=== PATIENT | male | born 1970 | race Caucasian/White ===

== ENCOUNTER 2019-06-24 16:40 | Outpatient (CLI) | payer OTHER, SELFPAY ==
[2019-06-24 16:59] LABS: Basophils Absolute Auto 0.1 K/mm3 (0.0-0.1); Basophils Percent Auto 1.4 % (0.2-1.2); Eosinophils Absolute Auto 0.2 K/mm3 (0-0.3); Eosinophils Percent Auto 2.7 % (0-4.4); Hematocrit 44.2 % (42.0-52.0); Hemoglobin 14.8 g/dL (14.0-18.0); Immature Platelet Fraction Pct 4.5 % (0.9-11.2); Lymphocytes Percent Auto 28.3 % (18.3-44.2); Mean Corpuscular HGB Conc 33.5 g/dl (32-36); Mean Corpuscular Volume 98.4 fl (80-100); Mean Platelet Volume 9.9 fl (7.4-10.4); Monocytes Absolute Auto 0.7 K/mm3 (0.1-0.6); Monocytes Percent Auto 10.8 % (2.6-8.5); Neutrophils Absolute Auto 3.6 K/mm3 (1.3-6.7); Neutrophils Percent Auto 56.8 % (45.5-73.1); Platelet Count Result 119 k/mm3 (150-375); Red Blood Count 4.49 M/mm3 (4.6-6.20); Red Cell Distribution Width 13.8 % (11.5-14.5); White Blood Count 6.4 K/mm3 (4.5-10.0)
[2019-06-24 17:09] LABS: Alanine Aminotransferase 55 U/L (4-50); Albumin Level 4.3 g/dL (3.5-5.1); Alkaline Phosphatase 260 U/L (38-126); Aspartate Amino Transferase 124 U/L (17-59); Bilirubin,Total 1.3 mg/dL (0.2-1.3); Blood Urea Nitrogen 10 mg/dL (9-20); Carbon Dioxide 23 mmol/L (22-30); Chloride 102 mmol/L (98-107); Estimated Glomerular Filt Rate > 60; Glucose 95 mg/dL (75-110); Potassium 4.3 mmol/L (3.4-5.0); Sodium 136 mmol/L (137-145)
[2019-06-24 18:29] LABS: Digoxin 0.6 ng/mL (0.8-2.0)
== END 2019-06-24 16:41 | disposition home or self-care (01) ==
PROVIDERS: Visit Provider Internal Medicine Cardiovascular Disease
DX: I48.19 Other persistent atrial fibrillation (principal); Z79.899 Other long term (current) drug therapy; Z79.01 Long term (current) use of anticoagulants
CPT/HCPCS: 36415; 80053; 80162; 85025; 85055

== ENCOUNTER 2020-01-10 10:43 | Outpatient (CLI) | payer OTHER, SELFPAY ==
--- NOTE | ~2020-01-10 | XR_ITS ---
XR lumbar spine 2-3V DATE: 01/10/2020 10:58 INDICATION: Low back pain, radiating down right leg, numbness TECHNIQUE: AP, lateral, coned lateral lumbosacral views COMPARISON: 03/01/2018 CT abdomen FINDINGS: There is chronic mild anterior wedging of L1 and L2, also noted on 02/19/2018 CT abdomen exa mination. The lumbar and lumbosacral interspaces are relatively preserved. There is moderate degenera tive spurring, particularly at L1-L3 4. The included lower thoracic and lumbar pedicles are intact. No recent fracture or bone destruction is evident. No spondylolisthesis. The sacroiliac joints appear normal. IMPRESSION: Degenerative spurring Chronic mild anterior wedging of L1 and L2 Reviewed, dictated and finalized at location B.
== END 2020-01-10 10:44 | disposition home or self-care (01) ==
LOC: CHSIMG 10:45
PROVIDERS: PCP Nurse Practitioner Family; Visit Provider Nurse Practitioner Family
DX: M54.5 Low back pain (principal)
CPT/HCPCS: 72100

== ENCOUNTER 2020-01-12 07:52 | Outpatient (RCR) | payer OTHER, SELFPAY ==
--- NOTE | 2020-01-12 17:48 | PTOPEVAL ---
Thank you for referring Anthony Jackson to [facility].? The patient is scheduled to be seen for therapy? ____x/week for ___ weeks. Please review, sign, date and return this plan of care MATTI. I agree with and certify that the following plan of care is medically necessary. Referring Physician Date Admitting Provider: Attending Provider: Sarah Norman NP Referring Provider: *CHITRA Outpatient Evaluation Start: 01/12/20 07:22 Freq: Status: Active Protocol: Document 01/12/20 07:20 [facility] (Rec: 01/12/20 08:10 [facility] [id number]) Therapy Assessment Status Assessment Status Assessment Status Evaluation Evaluation Information Problem Diagnosis lowe back pain, vertebral osteophytes Onset 01/10/20 Subjective Information patient reports he has been Query Text:As Reported By Patient/ having pain in the back and Family down both of his legs. he reports he has been feeling a bit better recently due to having some new medications. he reports his R leg seems to be the worse of the 2 legs. he reports he has been having issues for about 2 weeks. he reports no injury. he reports has had x-rays. he reports he has increased pain with lifting boxes, standing, and transfers sit to stand. Prior Level of Function Comments Additional Prior Level of Function patient works for [employer]. Comments he reports prior to a few weeks ago, patient had no issues with his back or his legs. Pain Assessment Timing of Pain Assessment Timing of Pain Assessment Assessment Pain Scale Pain Scale Used Numeric (1 - 10) Self Report Pain Assessment Lower Back Reported Pain Level 2 Pain Radiation Left Leg,Right Leg Pain Frequency Acute,Intermittent Lowest Pain Intensity 0 Greatest Pain Intensity 10 Pain Score Pain Score 2: Self Report Cervical and Lumbar ROM Lumbar ROM Lumbar Flexion Active Mid Isaac Query Text:Hands to: Lumbar Extension (0-40) 20 Query Text:Active in Degrees Lumbar Lateral Flexion Right (0-40) 30 Query Text:Active in Degrees Lumbar Lateral Flexion Left (0-40) 30 Query Text:Active in Degrees Lumbar Comments pain increased with arom
== END 2020-02-09 10:22 | disposition home or self-care (01) ==
LOC: CHSPT 07:52
PROVIDERS: PCP Family Medicine; Visit Provider Nurse Practitioner Family
DX: M25.78 Osteophyte, vertebrae (principal); M51.36 Other intervertebral disc degeneration, lumbar region
CPT/HCPCS: 97014; 97110; 97161; 97530; G0283

== ENCOUNTER 2020-03-22 23:03 | Emergency (ER) | payer OTHER, SELFPAY ==
[2020-03-22 23:14] VITALS: BP 110/87; BP 130/82; PULSE 83; PULSE 88; RESP 16; RESP 18; TEMP 36.4; O2SAT 94
--- NOTE | 2020-03-22 23:14 | ECG_ITS ---
Measurements Intervals [place] Rate: 89 P: [place]: 0 QRS: 71 QRSD: 93 T: -12 QT: 355 QTc: 434 Interpretive Statements ATRIAL FIBRILLATION BORDERLINE R WAVE PROGRESSION, ANTERIOR LEADS BORDERLINE ST-T WAVE ABNORMALITY- INF/LAT LEADS ABNORMAL ECG Electronically Signed On 03-23-2020 7:20:44 CLINIC OFFICE MANAGER by Eric Wagner D.O.
--- NOTE | 2020-03-22 23:16 | ED.GENADULT ---
HPI - General Adult General Chief complaint: Alcohol Stated complaint: fell Source: patient Mode of arrival: ambulatory Limitations: altered mental status History of Present Illness HPI narrative: Anthony is a 49M with a PMH of DJD, alcoholic cirrhosis of the liver, ischemic cardiomyopathy, CAD, HLD, HTN and Afib that presented to the ED EMS after an episode of near syncope. He had been drinking (states 10 beers), and collapsed while urinating at the bathroom. He states his legs went numb and be fell to the ground and couldn't get up. He did not lose consciousness, or hit his head or neck. He denies pain at this time. No CP, SOB, or palpitations. He has regained feeling in his legs. No loss of bowel or bladder control. Related Data Allergies Allergy/AdvReac Type Severity Reaction Status Date / Time adhesive tape Allergy Unknown RASH Verified 02/10/20 08:20 Review of Systems Constitutional: Constitutional: Denies chills, Denies fever(s) and Reports weakness Eyes: Eyes: Reports no additional eye complaints ENT: Reports system reviewed and no additional complaints, except as documented Cardiovascular: Cardiovascular: Reports as per HPI Respiratory: Respiratory: Reports no additional respiratory complaints Gastrointestinal: Gastrointestinal: Reports no additional gastrointestinal complaints Genitourinary: Genitourinary: Reports no additional male genitourinary complaints Musculoskeletal: Musculoskeletal: Reports no additional musculoskeletal complaints Integumentary/Breasts: Skin/Breast: Reports system reviewed and no additional complaints, except as docu Neurologic: Reports system reviewed and no additional complaints, except as documented Psychiatric: Psychiatric: Reports no additional psychiatric complaints Endocrine: Endocrine: Reports no additional endocrine complaints Hematologic/Lymphatic: Hematologic/Lymphatic: Reports no additional hematologic/lymphatic complaints Allergic/Immunologic: Allergic/Immunologic: Reports no additional allergic/immunologic complaints [facility] Past Medical History Medical History (Updated 03/23/20 @ 00:00 by Davis Obregon DO) Acute myocardial infarction (~2015) Cath with no Stents Alcohol abuse Alcohol dependence Alcoholic cirrhosis of liver Atrial fibrillation Biatrial enlargement CHF (congestive heart failure) Chronic hepatitis Connective tissue disease Essential hypertension History of ingrown nail 04/2017 - -managed by Dr Avila Hyperlipidemia Ischemic cardiomyopathy Nonspecific abnormality on liver isotope scan Steatosis, liver Surgical History Surgical History History of shoulder surgery (~2011) Left Family History Family History Mother Cerebrovascular accident Father Diabetes mellitus Scleroderma Pulmonary hypertension Social History Social History Smoking status: Former smoker Alcohol intake: current Substance use: never Additional occupation/education comments: [employer] Gender identity (if verbalized by the patient): Male Sexual Orientation (if Verbalized by the Patient): Straight or Heterosexual Spiritual care concerns: No Exam Const: General: alert Orientation/consciousness: patient oriented x3 Other: Lying in bed without distress HENMT: Head: normal to inspection Other: normocephalic, atraumatic, EOMI Eyes: Conjunctivae: conjunctivae normal Pupils: Equal, round and reactive pupils present Neck: Neck: normal visual inspection Chest: Chest palpation & inspection: normal inspection of the chest Resp: Effort & Inspection: normal respiratory effort Auscultation: clear to auscultation bilaterally Cardio: Rate: regular rate Rhythm: regular rhythm GI: Inspection: non-distended GI Palp: Yes Soft to palpation, No Tenderness to palpation present (GI) a
[2020-03-22 23:30] LABS: Basophils Absolute Auto 0.05 K/mm3 (0.00-0.10); Eosinophils Percent Auto 3.8 % (1.0-6.0); Hematocrit 39.1 % (40.0-54.0); Hemoglobin 12.7 g/dL (14.0-18.0); Immature Granulocyte Absolute 0.01 K/mm3 (0.00-0.00); Immature Granulocyte Percent A 0.2 % (0.0-0.0); Lymphocytes Absolute Auto 2.03 K/mm3 (1.10-4.50); Lymphocytes Percent Auto 38.7 % (18.0-42.0); Mean Corpuscular HGB Conc 32.5 g/dL (32.0-36.0); Mean Corpuscular Hemoglobin 32.3 pg (27.0-31.0); Mean Corpuscular Volume 99.5 fL (78.0-102.0); Mean Platelet Volume 10.4 fl (8.7-11.0); Monocytes Absolute Auto 0.46 K/mm3 (0.10-0.90); Monocytes Percent Auto 8.8 % (2.0-11.0); Neutrophils Absolute Auto 2.5 K/mm3 (1.7-7.2); Neutrophils Percent Auto 47.5 % (50.0-70.0); Platelet Count Result 108 K/mm3 (150-420); Red Blood Count 3.93 M/mm3 (4.70-6.10); Red Cell Distribution Width 13.4 % (11.6-14.4); White Blood Count 5.3 K/mm3 (4.8-10.8)
[2020-03-22 23:43] LABS: INR 1.3; Prothrombin Time 13.9 Seconds (9.50-12.10)
[2020-03-22 23:48] LABS: Alanine Aminotransferase 30 U/L (16-63); Albumin Level 2.8 g/dL (3.4-5.0); Alkaline Phosphatase 236 U/L (46-116); Ammonia 26 umol/L (11-32); Anion Gap 14 mmol/L (8-16); Aspartate Amino Transferase 58 U/L (15-37); Bilirubin,Total 1.1 mg/dL (0.00-1.00); Blood Urea Nitrogen 10 mg/dL (7-18); Calcium 8.1 mg/dL (8.5-10.1); Carbon Dioxide 20 mmol/L (21-32); Chloride 99 mmol/L (98-108); Estimated CRCL calculation 94 ml/min; Estimated Glomerular Filt Rate > 60; Glucose 135 mg/dL (70-99); Osmolality Calculated 277 mOsm/kg (285-295); Potassium 3.7 mmol/L (3.5-5.1); Sodium 133 mmol/L (136-145); Total Protein 8.2 g/dL (6.4-8.2)
[2020-03-22 23:50] LABS: Ethanol > 300 mg/dL (0-6)
[2020-03-22 23:59] VITALS: BP 111/60; PULSE 82; RESP 18; O2SAT 96
[2020-03-23 00:10] VITALS: BP 109/80; PULSE 90; RESP 18; TEMP 36.3; O2SAT 95
== END 2020-03-23 00:11 | disposition home or self-care (01) ==
PROVIDERS: Emergency Provider Family Medicine; PCP Family Medicine
DX: F10.129 Alcohol abuse with intoxication, unspecified (principal)
CPT/HCPCS: 36415; 80053; 80307; 82140; 84484; 85025; 85610; 93005; 99282; 99284

== ENCOUNTER 2020-07-06 09:01 | Outpatient (CLI) | payer OTHER, SELFPAY ==
[2020-07-06 09:17] LABS: Basophils Absolute Auto 0.03 K/mm3 (0.00-0.10); Basophils Percent Auto 0.6 % (0.0-1.0); Eosinophils Absolute Auto 0.07 K/mm3 (0.02-0.50); Eosinophils Percent Auto 1.5 % (1.0-6.0); Hematocrit 41.2 % (40.0-54.0); Hemoglobin 13.4 g/dL (14.0-18.0); Immature Granulocyte Absolute 0.01 K/mm3 (0.00-0.00); Immature Granulocyte Percent A 0.2 % (0.0-0.0); Immature Platelet Fraction Pct 3.8 % (1.0-7.0); Lymphocytes Percent Auto 20.8 % (18.0-42.0); Mean Corpuscular HGB Conc 32.5 g/dL (32.0-36.0); Mean Corpuscular Hemoglobin 31.2 pg (27.0-31.0); Monocytes Absolute Auto 0.36 K/mm3 (0.10-0.90); Monocytes Percent Auto 7.5 % (2.0-11.0); Neutrophils Absolute Auto 3.3 K/mm3 (1.7-7.2); Neutrophils Percent Auto 69.4 % (50.0-70.0); Platelet Count Result 107 K/mm3 (150-420); Red Blood Count 4.29 M/mm3 (4.70-6.10); Red Cell Distribution Width 15.8 % (11.6-14.4); White Blood Count 4.8 K/mm3 (4.8-10.8)
[2020-07-06 10:02] LABS: Alanine Aminotransferase 36 U/L (16-63); Albumin Level 3.4 g/dL (3.4-5.0); Alkaline Phosphatase 244 U/L (46-116); Anion Gap 13 mmol/L (8-16); Aspartate Amino Transferase 53 U/L (15-37); Bilirubin,Total 2.2 mg/dL (0.00-1.00); Blood Urea Nitrogen 13 mg/dL (7-18); Calcium 8.7 mg/dL (8.5-10.1); Carbon Dioxide 24 mmol/L (21-32); Chloride 103 mmol/L (98-108); Digoxin 0.5 ng/mL (0.9-2.0); Estimated Glomerular Filt Rate > 60; Glucose 115 mg/dL (70-99); Osmolality Calculated 291 mOsm/kg (285-295); Potassium 3.9 mmol/L (3.5-5.1); Sodium 140 mmol/L (136-145); Total Protein 8.4 g/dL (6.4-8.2)
== END 2020-07-06 09:02 | disposition home or self-care (01) ==
LOC: CHSLAB 09:03
PROVIDERS: PCP Family Medicine; Visit Provider Internal Medicine Cardiovascular Disease
DX: I25.5 Ischemic cardiomyopathy (principal); I48.91 Unspecified atrial fibrillation; Z79.01 Long term (current) use of anticoagulants; Z79.899 Other long term (current) drug therapy
CPT/HCPCS: 36415; 80053; 80162; 85025; 85027; 85055

== ENCOUNTER 2020-09-26 10:55 | Outpatient (NON) | payer OTHER, SELFPAY ==
[2020-09-26 11:16] LABS: Hematocrit 38.6 % (40.0-54.0); Hemoglobin 12.4 g/dL (14.0-18.0); Mean Corpuscular HGB Conc 32.1 g/dL (32.0-36.0); Mean Corpuscular Hemoglobin 31.2 pg (27.0-31.0); Mean Corpuscular Volume 97.2 fL (78.0-102.0); Mean Platelet Volume 11.9 fl (8.7-11.0); Platelet Count Result 163 K/mm3 (150-420); Red Blood Count 3.97 M/mm3 (4.70-6.10); Red Cell Distribution Width 14.6 % (11.6-14.4); White Blood Count 5.9 K/mm3 (4.8-10.8)
[2020-09-26 11:19] LABS: Anion Gap 8 mmol/L (8-16); Blood Urea Nitrogen 18 mg/dL (7-18); CRP 3.6 mg/dL (0.0-0.9); Calcium 9.3 mg/dL (8.5-10.1); Carbon Dioxide 26 mmol/L (21-32); Chloride 103 mmol/L (98-108); Estimated Glomerular Filt Rate > 60; Glucose 96 mg/dL (70-99); Osmolality Calculated 285 mOsm/kg (285-295); Potassium 4.2 mmol/L (3.5-5.1); Sodium 137 mmol/L (136-145)
== END 2020-09-26 10:56 | disposition home or self-care (01) ==
LOC: CHSLAB 10:57
PROVIDERS: Visit Provider Internal Medicine Infectious Disease
DX: M86.9 Osteomyelitis, unspecified (principal)
CPT/HCPCS: 36415; 80048; 85027; 86140

== ENCOUNTER 2020-10-06 12:40 | Outpatient (NON) | payer OTHER, SELFPAY ==
[2020-10-06 12:59] LABS: Basophils Absolute Auto 0.04 K/mm3 (0.00-0.10); Basophils Percent Auto 0.7 % (0.0-1.0); Eosinophils Absolute Auto 0.11 K/mm3 (0.02-0.50); Eosinophils Percent Auto 2.1 % (1.0-6.0); Hematocrit 37.9 % (40.0-54.0); Hemoglobin 12.7 g/dL (14.0-18.0); Immature Granulocyte Absolute 0.01 K/mm3 (0.00-0.00); Immature Granulocyte Percent A 0.2 % (0.0-0.0); Lymphocytes Absolute Auto 1.39 K/mm3 (1.10-4.50); Mean Corpuscular HGB Conc 33.5 g/dL (32.0-36.0); Mean Corpuscular Hemoglobin 31.4 pg (27.0-31.0); Mean Corpuscular Volume 93.8 fL (78.0-102.0); Mean Platelet Volume 11.8 fl (8.7-11.0); Monocytes Percent Auto 7.5 % (2.0-11.0); Neutrophils Absolute Auto 3.4 K/mm3 (1.7-7.2); Neutrophils Percent Auto 63.5 % (50.0-70.0); Platelet Count Result 106 K/mm3 (150-420); Red Blood Count 4.04 M/mm3 (4.70-6.10); Red Cell Distribution Width 14.6 % (11.6-14.4); White Blood Count 5.4 K/mm3 (4.8-10.8)
[2020-10-06 13:18] LABS: Alanine Aminotransferase 34 U/L (16-63); Albumin Level 3.1 g/dL (3.4-5.0); Alkaline Phosphatase 291 U/L (46-116); Anion Gap 15 mmol/L (8-16); Aspartate Amino Transferase 72 U/L (15-37); Bilirubin,Total 1.3 mg/dL (0.00-1.00); Blood Urea Nitrogen 13 mg/dL (7-18); CRP 0.5 mg/dL (0.0-0.9); Calcium 8.9 mg/dL (8.5-10.1); Carbon Dioxide 22 mmol/L (21-32); Chloride 100 mmol/L (98-108); Estimated Glomerular Filt Rate > 60; Glucose 94 mg/dL (70-99); Osmolality Calculated 284 mOsm/kg (285-295); Potassium 3.8 mmol/L (3.5-5.1); Sodium 137 mmol/L (136-145); Total Protein 8.5 g/dL (6.4-8.2)
== END 2020-10-06 12:41 | disposition home or self-care (01) ==
LOC: CHSLAB 12:42
PROVIDERS: Visit Provider Internal Medicine Infectious Disease
DX: M86.9 Osteomyelitis, unspecified (principal)
CPT/HCPCS: 36415; 80053; 85025; 86140

== ENCOUNTER 2020-10-10 13:14 | Outpatient (NON) | payer OTHER, SELFPAY ==
[2020-10-10 13:24] LABS: Basophils Absolute Auto 0.04 K/mm3 (0.00-0.10); Basophils Percent Auto 0.7 % (0.0-1.0); Eosinophils Absolute Auto 0.27 K/mm3 (0.02-0.50); Eosinophils Percent Auto 4.9 % (1.0-6.0); Hematocrit 42.7 % (40.0-54.0); Immature Granulocyte Absolute 0.02 K/mm3 (0.00-0.00); Immature Granulocyte Percent A 0.4 % (0.0-0.0); Lymphocytes Absolute Auto 0.98 K/mm3 (1.10-4.50); Lymphocytes Percent Auto 17.7 % (18.0-42.0); Mean Corpuscular HGB Conc 32.8 g/dL (32.0-36.0); Mean Corpuscular Hemoglobin 31.3 pg (27.0-31.0); Mean Corpuscular Volume 95.3 fL (78.0-102.0); Mean Platelet Volume 11.8 fl (8.7-11.0); Monocytes Absolute Auto 0.44 K/mm3 (0.10-0.90); Monocytes Percent Auto 7.9 % (2.0-11.0); Neutrophils Absolute Auto 3.8 K/mm3 (1.7-7.2); Neutrophils Percent Auto 68.4 % (50.0-70.0); Platelet Count Result 99 K/mm3 (150-420); Red Blood Count 4.48 M/mm3 (4.70-6.10); Red Cell Distribution Width 14.9 % (11.6-14.4); White Blood Count 5.6 K/mm3 (4.8-10.8)
[2020-10-10 13:34] LABS: Anion Gap 13 mmol/L (8-16); Blood Urea Nitrogen 9 mg/dL (7-18); CRP 0.7 mg/dL (0.0-0.9); Calcium 9.6 mg/dL (8.5-10.1); Carbon Dioxide 24 mmol/L (21-32); Chloride 102 mmol/L (98-108); Estimated Glomerular Filt Rate > 60; Glucose 101 mg/dL (70-99); Osmolality Calculated 286 mOsm/kg (285-295); Potassium 3.8 mmol/L (3.5-5.1); Sodium 139 mmol/L (136-145)
== END 2020-10-10 13:15 | disposition home or self-care (01) ==
LOC: CHSLAB 13:16
PROVIDERS: Visit Provider Internal Medicine Infectious Disease
DX: M86.9 Osteomyelitis, unspecified (principal)
CPT/HCPCS: 36415; 80048; 85025; 86140

== ENCOUNTER 2020-10-20 09:49 | Outpatient (NON) | payer OTHER, SELFPAY ==
[2020-10-20 10:41] LABS: Basophils Absolute Auto 0.03 K/mm3 (0.00-0.10); Basophils Percent Auto 0.6 % (0.0-1.0); Eosinophils Absolute Auto 0.28 K/mm3 (0.02-0.50); Eosinophils Percent Auto 5.4 % (1.0-6.0); Immature Granulocyte Absolute 0.02 K/mm3 (0.00-0.00); Immature Granulocyte Percent A 0.4 % (0.0-0.0); Immature Platelet Fraction Pct 4.2 % (1.0-7.0); Lymphocytes Absolute Auto 0.98 K/mm3 (1.10-4.50); Lymphocytes Percent Auto 19.1 % (18.0-42.0); Mean Corpuscular HGB Conc 33.3 g/dL (32.0-36.0); Mean Corpuscular Hemoglobin 31.1 pg (27.0-31.0); Mean Corpuscular Volume 93.3 fL (78.0-102.0); Mean Platelet Volume 11.9 fl (8.7-11.0); Monocytes Absolute Auto 0.58 K/mm3 (0.10-0.90); Monocytes Percent Auto 11.3 % (2.0-11.0); Neutrophils Absolute Auto 3.3 K/mm3 (1.7-7.2); Neutrophils Percent Auto 63.2 % (50.0-70.0); Platelet Count Result 78 K/mm3 (150-420); Red Blood Count 4.18 M/mm3 (4.70-6.10); Red Cell Distribution Width 15.5 % (11.6-14.4); White Blood Count 5.1 K/mm3 (4.8-10.8)
[2020-10-20 10:42] LABS: Anion Gap 15 mmol/L (8-16); Blood Urea Nitrogen 10 mg/dL (7-18); CRP 0.5 mg/dL (0.0-0.9); Calcium 8.9 mg/dL (8.5-10.1); Carbon Dioxide 21 mmol/L (21-32); Chloride 101 mmol/L (98-108); Estimated Glomerular Filt Rate > 60; Glucose 105 mg/dL (70-99); Osmolality Calculated 283 mOsm/kg (285-295); Potassium 4.2 mmol/L (3.5-5.1); Sodium 137 mmol/L (136-145)
== END 2020-10-20 09:50 | disposition home or self-care (01) ==
LOC: CHSLAB 09:51
PROVIDERS: Visit Provider Internal Medicine Infectious Disease
DX: M86.9 Osteomyelitis, unspecified (principal)
CPT/HCPCS: 36415; 80048; 85025; 85055; 86140

== ENCOUNTER 2021-03-13 14:19 | Outpatient (CLI) | payer OTHER, SELFPAY ==
[2021-03-13 14:40] LABS: Basophils Absolute Auto 0.04 K/mm3 (0.00-0.10); Basophils Percent Auto 0.7 % (0.0-1.0); Eosinophils Absolute Auto 0.13 K/mm3 (0.02-0.50); Eosinophils Percent Auto 2.3 % (1.0-6.0); Hematocrit 37.8 % (40.0-54.0); Hemoglobin 12.5 g/dL (14.0-18.0); Immature Granulocyte Absolute 0.01 K/mm3 (0.00-0.00); Immature Granulocyte Percent A 0.2 % (0.0-0.0); Immature Platelet Fraction Pct 4.3 % (1.0-7.0); Lymphocytes Absolute Auto 1.23 K/mm3 (1.10-4.50); Lymphocytes Percent Auto 21.7 % (18.0-42.0); Mean Corpuscular HGB Conc 33.1 g/dL (32.0-36.0); Mean Corpuscular Hemoglobin 33.1 pg (27.0-31.0); Mean Platelet Volume 11.2 fl (8.7-11.0); Monocytes Absolute Auto 0.62 K/mm3 (0.10-0.90); Monocytes Percent Auto 10.9 % (2.0-11.0); Neutrophils Absolute Auto 3.6 K/mm3 (1.7-7.2); Neutrophils Percent Auto 64.2 % (50.0-70.0); Platelet Count Result 100 K/mm3 (150-420); Red Blood Count 3.78 M/mm3 (4.70-6.10); Red Cell Distribution Width 14.6 % (11.6-14.4); White Blood Count 5.7 K/mm3 (4.8-10.8)
[2021-03-13 15:04] LABS: INR 1.2; Prothrombin Time 12.9 Seconds (9.50-12.10)
[2021-03-13 17:19] LABS: Alanine Aminotransferase 39 U/L (16-63); Albumin Level 3.2 g/dL (3.4-5.0); Alkaline Phosphatase 258 U/L (46-116); Anion Gap 14 mmol/L (8-16); Aspartate Amino Transferase 54 U/L (15-37); Bilirubin,Total 2.1 mg/dL (0.00-1.00); Blood Urea Nitrogen 14 mg/dL (7-18); Calcium 8.6 mg/dL (8.5-10.1); Carbon Dioxide 21 mmol/L (21-32); Chloride 102 mmol/L (98-108); Estimated Glomerular Filt Rate > 60; Glucose 82 mg/dL (70-99); Osmolality Calculated 283 mOsm/kg (285-295); Potassium 4.1 mmol/L (3.5-5.1); Sodium 137 mmol/L (136-145); Total Protein 7.9 g/dL (6.4-8.2)
== END 2021-03-13 14:20 | disposition home or self-care (01) ==
LOC: CHSLAB 14:20
PROVIDERS: PCP Family Medicine; Visit Provider Surgery
DX: K42.9 Umbilical hernia without obstruction or gangrene (principal); K70.30 Alcoholic cirrhosis of liver without ascites
CPT/HCPCS: 36415; 80053; 85025; 85055; 85610

== ENCOUNTER 2021-03-30 01:00 | Day surgery (SDC) | payer OTHER, SELFPAY ==
[2021-03-23 14:53] VITALS: BMI 26.0
--- NOTE | 2021-03-23 15:09 | PC.NURSE ---
Report to the Outpatient Waiting Room, entrance under the green pavilion located off [facility], at time 1100 on date 03/30/21. OR Time: 1300. - You and your visitor will be asked a series of questions to screen for COVID 19 for your protection. - A mask is required within the hospital. - Only one visitor is allowed at this time. Patient visitors will be guided where to wait when not with patient. Preoperative COVID Testing Requirements: No COVID Test needed if: (proof is required; if not received patient will have Rapid Test prior to entry) - Patient has received COVID Vaccine at least 14 days prior to procedure date or - Patient has positive COVID test result within last 90 days of surgery date. COVID Test needed if above criteria is not met If not COVID vaccinated a COVID test must be conducted within 72 hours of surgery and patient is asked to isolate self from time of testing until procedure. You will go to the [facility] for your COVID testing. The [facility] is located at the corner of [address] [facility]. You will only be called if COVID results are positive and your surgeon may reschedule your elective surgery date. Patients may have clear liquids (water, carbonated beverages, clear teas, apple juice) until 3 hours prior to surgery with a maximum of 20 ounces. - No food from midnight until time of surgery - Infants may have breast milk until 4 hours before surgery, infant formula 6 hours prior to surgery. - Children will be allowed to drink immediately following surgery. If applicable, please bring a bottle or sippy cup to assist with drinking. Juice, water, soda, and popsicles are readily available. For infants on formula, please bring formula the day of surgery. Pacifiers are allowed. Take the following medications with a SIP of water the morning of surgery: METOPROLOL, DIGOXIN, GABAPENTIN Medications to discontinue per physician: VITAMINS/SUPPLEMENTS Date to take last dose: 03/26/21 STOP XARELTO ON 03/27/21 (PER PHYSICIAN ORDERS) Please no make-up, nail latvian, hairspray, perfume, deodorant, or body powder the day of surgery. No jewelry (including any body piercings) or valuables the day of surgery, leave them at home. Please take a shower or bath the night before, or the morning of, surgery with an antibacterial soap. Wear comfortable, loose fitting clothing. Children are encouraged to wear pajamas. HIBICLENS SHOWER - Jewelry must be removed prior to entering the operating room. Rings and piercings that are not removed may be cut off. - The hospital will not accept responsibility for valuables. - Please leave all valuables, including medications, at home the day of surgery. If you are going home after surgery, a licensed front end loader driver must drive you home. - NO public transportation without another adult. - We recommend that an adult stay with you for 24 hours following discharge. - We also recommend that you do not drive, make important decision, drink alcoholic beverages, or take any drugs that were not prescribed by your health care provider for at least 24 hours after your discharge time. For Pediatric surgeries, we recommend two adults accompany the child home (only one inside the building at this time). Follow any additional instructions given to you from your surgeon. Telephone instructions given to VALDEMAR SCHULTE and asked if any additional questions and then verbalized understanding. Patient advised to call surgeon office or pre surgery nurse liaison [phone] if any additional questions.
[2021-03-30] VITALS (8 sets, daily range): BP systolic 123–164; BP diastolic 79–95; PULSE 77–93; RESP 12–16; TEMP 36.4; O2SAT 97–100
--- NOTE | 2021-03-30 11:19 | ECG_ITS ---
Measurements Intervals [place] Rate: 94 P: [place]: 0 QRS: 48 QRSD: 84 T: 13 QT: 308 QTc: 386 Interpretive Statements ATRIAL FIBRILLATION LOW QRS VOLTAGE IN PRECORDIAL LEADS BORDERLINE R WAVE PROGRESSION, ANTERIOR LEADS BORDERLINE T WAVE ABNORMALITY- INFERIOR LEADS ABNORMAL ECG Electronically Signed On 03-30-2021 12:21:42 KIDS CLUB ATTENDANT by Eric Wagner D.O.
[2021-03-30] MEDS: LACTATED RINGERS 1,000 ML 30 ML IV CONT ×2 (11:59→14:23)
[2021-03-30] MEDS: ACETAMINOPHEN 500 MG TABLET 1000 MG PO (11:59)
[2021-03-30] MEDS: KETOROLAC 15 MG/ML VIAL (*BKC) IV PUSH (12:01)
--- NOTE | 2021-03-30 12:35 | WPDANESEPPF ---
Anes - Initial Pre Proc Eval Procedure: Operation Date: 03/30/21 13:00 Proposed Procedures p Umbilical Hernia Repair with Possible Mesh - Juan Pablo Caldera DO Date/Time: 03/30/21 12:35 Surgeon: Juan Pablo Caldera DO Pre Op Diagnosis: Umb Hernia Patient Data Age: 50 Gender: M Height: 1.87 m Weight: 99.8 kg Last Vital Signs Temp 36.4 C 03/30/21 11:35 Pulse 93 03/30/21 11:35 Resp 16 03/30/21 11:35 BP 164/95 H 03/30/21 11:35 Pulse Ox 100 03/30/21 11:35 Allergies Allergy/AdvReac Type Severity Reaction Status Date / Time adhesive tape Allergy Mild RASH Verified 03/30/21 11:05 Home Medications Medication Instructions Recorded Confirmed Type atorvastatin 80 mg tablet 80 mg PO DAILY #90 tablet 03/15/19 03/30/21 Rx calcium carbonate 600 mg calcium 600 mg PO DAILY #90 tablet 03/15/19 03/30/21 Rx (1,500 mg) tablet thiamine HCl (vitamin B1) 100 mg 100 mg PO DAILY #90 tablet 03/15/19 03/30/21 Rx tablet digoxin 250 mcg (0.25 mg) tablet 250 mcg PO DAILY #90 tablet 06/29/19 03/30/21 Rx furosemide 20 mg tablet 20 mg PO QAM #90 tablet 06/29/19 03/30/21 Rx lisinopril 20 mg tablet 20 mg PO DAILY #90 tablet 06/29/19 03/30/21 Rx metoprolol succinate 200 mg See Rx Instructions .ROUTE 06/30/19 03/30/21 Rx tablet,extended release 24 hr .COMPLEX #90 each rivaroxaban 20 mg tablet 20 mg PO DAILY #90 tablet 01/04/20 03/30/21 Rx cyclobenzaprine 10 mg tablet 10 mg PO TID PRN #30 tablet 01/23/21 03/30/21 Rx gabapentin 300 mg capsule 300 mg PO BID #180 cap 02/20/21 03/30/21 Rx Patient hx anesthesia problems: none Family hx anesthesia problems: none Results Review: All pre-operative results and documents have been reviewed as part of the pre-operative evaluation. [facility] Past Medical History Medical History Acute myocardial infarction (~2015) Cath with no Stents Alcohol abuse Alcohol dependence Alcoholic cirrhosis of liver Atrial fibrillation Biatrial enlargement CHF (congestive heart failure) Chronic hepatitis Connective tissue disease Essential hypertension History of ingrown nail 04/2017 - -managed by Dr Avila Hyperlipidemia Ischemic cardiomyopathy Nonspecific abnormality on liver isotope scan Surgical History Surgical History History of foot surgery History of shoulder surgery (~2011) Left Family History Family History Mother Cerebrovascular accident Father Diabetes mellitus Scleroderma Pulmonary hypertension Bile duct cancer Social History Social History Smoking packs per day: 1.5 Smoking cigarettes per day: 30.0 Years smoked: 10 Smoking pack-years: 15.00 Smoking status: Former smoker Tobacco type: cigarettes Smoking end date: 04/14/01 Alcohol intake: current Alcohol use details: 6 PACK BEER/DAY Substance use: former Substance use type: marijuana Living arrangements: with family Additional occupation/education comments: [employer] Gender identity (if verbalized by the patient): Male Sexual Orientation (if Verbalized by the Patient): Straight or Heterosexual Spiritual care concerns: No Anes - Eval Final PreProcedure Day of Procedure 03/30/21 12:35 Patient weight: overweight Heart: irregular rhythm Lungs: clear to auscultation Airway: Mallampati scale class III and special considerations retrognathia Neurological: alert and oriented Last oral intake: >/= 8 hours ASA classification: IV Emergent: no Anesthetic plan: proceed Anesthesia type and monitoring: general ETT and standard monitoring Results Review: All pre-operative results and documents have been reviewed as part of the pre-operative evaluation. Informed Consent: The patient's anesthetic plan and its attendant risks and benefits were discussed with the patient
--- NOTE | 2021-03-30 12:51 | WPDHPUPDATE1 ---
History and Physical Update Update Date/Time: 03/30/21 12:51 History and Physical has been reviewed, including an updated exam of the patient. There are NO changes in the patient's condition. Risks, benefits, and alternatives have been discussed and questions answered. Patient agrees to proceed with procedure.
[2021-03-30] MEDS: ceFAZolin 2 GM/D5W 50 ML 2 GM/50 ML BAG IVPB (13:19)
--- NOTE | 2021-03-30 14:22 | W.PM.PROC2 ---
Procedure Note - Detailed Date of Procedure 03/30/21 Pre-op Diagnosis Umbilical hernia Post-op Diagnosis other (ventral periumbilical hernia) Procedure Performed Open ventral hernia repair with 6.[address] ventral patch Surgeon Juan Pablo Caldera, DO Anesthesia general and local (0.5% bupivacaine) Indications This is a 50-year-old man who presents with an umbilical bulge for the past couple years. He has noticed this becoming increasingly painful with activity. He is an alcoholic with evidence of cirrhosis and he was seen 1 year ago and he was strongly advised to quit drinking. He does continue to drink but states that he is having more and more symptoms with the hernia and would like this repaired. He understood the increased risks with his other medical conditions and still wishes to proceed. Discussions were made with the patient about treatment options and decision was made to proceed with umbilical hernia repair with possible mesh. Findings The patient was found to have a ventral periumbilical hernia measuring about 2 cm wide. This extended from just superior to his umbilicus to right underneath the umbilicus. The hernia sac was excised and sent to the lab for pathology. A preperitoneal pocket was created and the mesh was placed within this preperitoneal space. A 6.[address] mesh was chosen to repair the defect. The fascia was then closed over the mesh using 0 Ethibond [id number] sutures. Description of Procedure Procedure as well as risks, benefits, and alternatives were discussed with the patient. Written consent was obtained and placed in chart prior to procedure. Patient was brought back to surgical suite. He was placed supine on operating table. He was then intubated by Anesthesia Department. His abdomen was prepped and draped in sterile fashion using chlorhexidine prep. 0.5% bupivacaine was infiltrated locally around the operative area. A 4 cm curvilinear incision was made just superior to the umbilicus using a 15 blade scalpel. Electrocautery was used for hemostasis and for dissection down through the subcutaneous fat. Hernia sac was encountered and this was carefully freed up from surrounding subcutaneous fat using electrocautery. The hernia sac was freed up all the way down to the level of the fascia, and then it was transected using electrocautery. The hernia sac was sent to the lab for pathology. The umbilical stalk was then lifted off of the fascia with electrocautery. The hernia defect was then measured. This was measuring approximately 20 mm. The decision was made to use a 6.[address] ventral patch. The peritoneum was cleared under the fascia circumferentially around the hernia using blunt dissection and electrocautery. The peritoneal opening from excising the hernia sac was then closed using 3-0 Vicryl [id number] suture. Once a wide enough pocket was created for the mesh, the mesh was then placed within this preperitoneal pocket and laid out flat centered on the hernia defect. The mesh appeared to be sitting in proper position. The mesh was then secured with the fascial closure along the mesh straps using 0 Ethibond [id number] sutures. A total of 3 sutures were placed transversely to bring the fascia together over the mesh. The repair was inspected and appeared secure. 0.5% bupivacaine was infiltrated around the fascia and subcutaneous space. The umbilical stalk was then reapproximated to the fascia using a 3 0 Vicryl simple interrupted suture. The deep dermis was reapproximated using 3 0 Vicryl simple interrupted sutures, and then the skin was approximated using 4 Monocryl running subcuticular suture. Exofin glue was then applied on top. The patient was then awakened from anesthesia, extubated, and transferred to recovery. Implants 6.[address] ventral patch Estimated Blood Loss 5 Pathology yes (Hernia sac) Complications No immediate complications Condition stable Dis
== END 2021-03-30 16:27 | disposition home or self-care (01) ==
PROVIDERS: PCP Family Medicine; Visit Provider Surgery
PROC: (CPT 49585; principal; 2021-03-30 13:00)
DX: K42.9 Umbilical hernia without obstruction or gangrene (principal); I48.91 Unspecified atrial fibrillation; I11.0 Hypertensive heart disease with heart failure; I50.9 Heart failure, unspecified; I25.2 Old myocardial infarction; K70.30 Alcoholic cirrhosis of liver without ascites; E78.5 Hyperlipidemia, unspecified; I25.5 Ischemic cardiomyopathy; K73.9 Chronic hepatitis, unspecified; Z79.01 Long term (current) use of anticoagulants; Z87.891 Personal history of nicotine dependence
CPT/HCPCS: 49585; 88302; 93005; A9270; J0330; J0690; J1100; J1885; J2250; J2405; J2704; J3010; J7120

== ENCOUNTER 2021-04-05 15:05 | Outpatient (CLI) | payer OTHER, SELFPAY ==
--- NOTE | ~2021-04-05 | XR_ITS ---
EXAMINATION: XR foot LT min 3V DATE: 04/05/2021 15:30 INDICATION: Left foot pain post fall 5 days prior TECHNIQUE: Dorsoplantar, two oblique and lateral views of the left foot were obtained. COMPARISON: None. FINDINGS: Prior amputation of the third toe and osteotomies at the heads of the second-fifth metatarsals with w idening of the second, fourth and fifth metatarsophalangeal joint spaces and smooth corticated osteot ace margins. Oblique fracture at the distal metaphyseal region of the left fibula with fracture line extending to the medial cortex near the level of the tibiotalar joint line. There is disruption of th e deltoid ligament with marked widening of the medial clear space. There is 1-1.5 cm lateral displace ment of the lateral malleolar fragment with similar degree of lateral subluxation of the talar dome w ith respect to the tibial plafond and. There are broad bands of lucency projecting across the base of the first and second metatarsals with its more suspicious for an erosion/osteolysis rather than frac ture. No other fractures identified. Moderate joint space narrowing at the first, second, third and f ifth tarsal metatarsal joints. Mild joint space narrowing at the fourth metatarsophalangeal joint. Th ere is some moderately aggressive appearing periosteal reaction at the base of the first metatarsal. The periosteal reaction along the previous noted lucencies at the base of the first and second metata rsals raises some concern for osteomyelitis. With differential including combination of Charcot joint and stress reaction. Prominent soft tissue swelling about the left foot and ankle. IMPRESSION: 1. Unstable fracture subluxation of the left ankle including displaced Ward type B oblique fracture of the distal left fibula and disruption of the deltoid ligament with lateral subluxation of the nadja r dome with respect to the tibial plafond. 2. Lucencies at the base of the first and second metatarsals with moderate to severe joint space narr owing and symmetric moderately aggressive appearing periosteal reaction at the base of the first meta tarsal. This is related to combination of Charcot joint and stress injury but also raises some concer n for osteomyelitis. Correlate for skin ulceration or other penetrating skin wound in the vicinity or other signs/symptoms of infection. Could consider further evaluation with MRI as clinically indicate d. 3. Postoperative change of prior third toe amputation and osteotomies at the heads of the second-fift h metatarsals. Reviewed, dictated and finalized at location H. ICAL DATA ASSOCIATE IMPRESSION: 1. Unstable fracture subluxation of the left ankle including displaced Ward ty pe B oblique fracture of the distal left fibula and disruption of the deltoid l igament with lateral subluxation of the talar dome with respect to the tibial p jennifer. 2. Lucencies at the base of the first and second metatarsals with moderate to s evere joint space narrowing and symmetric moderately aggressive appearing perio steal reaction at the base of the first metatarsal. This is related to combinat ion of Charcot joint and stress injury but also raises some concern for osteomy elitis. Correlate for skin ulceration or other penetrating skin wound in the vi cinity or other signs/symptoms of infection. Could consider further evaluation with MRI as clinically indicated. 3. Postoperative change of prior third toe amputation and osteotomies at the he ads of the second-fifth metatarsals.
== END 2021-04-05 15:06 | disposition home or self-care (01) ==
LOC: CHSIMG 15:06
PROVIDERS: PCP Family Medicine; Visit Provider Family Medicine
DX: M79.672 Pain in left foot (principal)
CPT/HCPCS: 73630

== ENCOUNTER 2021-04-09 10:18 | Emergency (ER) | payer OTHER, SELFPAY ==
--- NOTE | ~2021-04-09 | XR_ITS ---
EXAMINATION: XR ankle LT min 3V DATE: 04/09/2021 13:55 INDICATION: Left ankle injury. TECHNIQUE: 3 views of left ankle were obtained. COMPARISON: Left foot radiographs 04/05/2021 FINDINGS: There is an oblique fracture of distal fibula with medial aspect of the fracture line at th e level of the tibial plafond. The distal fracture fragment demonstrates one shaft width lateral and posterior displacement and 14 mm overriding. There is widening of the medial ankle mortise. There is lateral subluxation of talus with respect to tibial plafond. There is mild osteoarthritis of talonavi cular joint. There are enthesophytes at the posterior and plantar aspects of calcaneal tuberosity. An kle soft tissue swelling is noted. IMPRESSION: 1. Ankle fracture-subluxation including oblique fracture of lateral malleolus and complete tear of th e deltoid ligament. Reviewed, dictated and finalized at location A. HERS ASSISTANT IMPRESSION: 1. Ankle fracture-subluxation including oblique fracture of lateral malleolus a nd complete tear of the deltoid ligament.
[2021-04-09 10:21] VITALS: BP 153/104; PULSE 86; RESP 16; TEMP 36.9; O2SAT 99
--- NOTE | 2021-04-09 18:16 | ED.GENADULT ---
HPI - General Adult General Chief complaint: Extremity Injury, Lower Stated complaint: ankle pain Time Seen by Provider: 04/09/21 11:12 Source: patient Mode of arrival: ambulatory Limitations: no limitations History of Present Illness HPI narrative: Patient is a 50 yo male with a multitude of health conditions presenting with CC of bruising and worsened deformity to the left ankle/foot after injury on 03/31. He reports he saw PCP who didn't think it was broken. Returned to PCP 04/04 requesting xrays due to odd appearance and images were performed on 04/05. Patient called today and informed he had a fracture and needed to come to the ER. Patient has history of prior foot surgeries via Dr Avila and has deformity to his foot. He is missing metatarsals 2 and 4. Patient uses a walking boot. Related Data Allergies Allergy/AdvReac Type Severity Reaction Status Date / Time adhesive tape Allergy Mild RASH Verified 04/02/21 09:08 Review of Systems Review of Systems: CONSTITUTIONAL: Denies fever, chills, or sweats. EYES: Denies visual changes, redness, or discharge. ENT: Denies rhinorrhea, congestion, sore throat, or otalgia. CARDIOVASCULAR: Denies chest pain, palpitations, or edema. RESPIRATORY: Denies cough or dyspnea. GASTROINTESTINAL: Denies abdominal pain, nausea, vomiting, or diarrhea. GENITOURINARY: Denies dysuria or hematuria. SKIN: Denies rash or itching. MUSCULOSKELETAL: Reports left ankle injury denies back pain, joint pain, or myalgia. NEUROLOGIC: Denies headache, numbness, dizziness, or weakness. PSYCHIATRIC: Denies anxiety or depression. [facility] Past Medical History Medical History (Updated 04/09/21 @ 14:44 by Romie Sheehan PA-C) Acute myocardial infarction (~2015) Cath with no Stents Alcohol abuse Alcohol dependence Alcoholic cirrhosis of liver Atrial fibrillation Biatrial enlargement CHF (congestive heart failure) Chronic hepatitis Connective tissue disease Essential hypertension History of ingrown nail 04/2017 - -managed by Dr Avila Hyperlipidemia Ischemic cardiomyopathy Nonspecific abnormality on liver isotope scan Surgical History Surgical History (Updated 04/02/21 @ 10:38 by Brittany Costa MA) H/O hernia repair History of foot surgery History of shoulder surgery (~2011) Left Family History Family History Mother Cerebrovascular accident Father Diabetes mellitus Scleroderma Pulmonary hypertension Bile duct cancer Social History Social History Smoking packs per day: 1.5 Smoking cigarettes per day: 30.0 Years smoked: 10 Smoking pack-years: 15.00 Smoking status: Former smoker Tobacco type: cigarettes Smoking end date: 04/14/01 Alcohol intake: current Alcohol use details: 6 PACK BEER/DAY Substance use: former Substance use type: marijuana Additional occupation/education comments: [employer] Gender identity (if verbalized by the patient): Male Sexual Orientation (if Verbalized by the Patient): Straight or Heterosexual Spiritual care concerns: No Exam Narrative: GENERAL: Well-appearing, well-nourished, and in no acute distress. HEAD: Normocephalic, atraumatic. EYES: PERRLA and EOMI. EXTREMITIES: Swelling, ecchymosis to left lower leg into the foot.Deformity noted some chronic appearing some acute. missing metatarsals 2 and 4. SKIN: Warm, dry, no rash. NEURO: No focal deficits. Alert and oriented x3. PSYCH: Normal mood and affect. Course Vital Signs Vital signs: Vital Signs Temperature 98.5 F 04/09/21 10:21 Pulse Rate 86 04/09/21 10:21 Respiratory Rate 16 04/09/21 10:21 Blood Pressure 153/104 H 04/09/21 10:21 Pulse Oximetry 99 04/09/21 10:21 Temperature 98.5 F 04/09/21 10:21 Pulse Rate 86 04/09/21 10:21 Respiratory Rate 16 04/09/21 10:21 Blood Pressure 153/104 H 04/09/21 10:21 Pulse Oximetry 99
== END 2021-04-09 14:55 | disposition home or self-care (01) ==
PROVIDERS: Emergency Provider Emergency Medicine; PCP Family Medicine
DX: S93.05XA Dislocation of left ankle joint, initial encounter (principal); X58.XXXA Exposure to other specified factors, initial encounter; I11.0 Hypertensive heart disease with heart failure; I50.9 Heart failure, unspecified; I25.5 Ischemic cardiomyopathy; K70.30 Alcoholic cirrhosis of liver without ascites; K73.9 Chronic hepatitis, unspecified; E78.5 Hyperlipidemia, unspecified; I25.2 Old myocardial infarction; I48.91 Unspecified atrial fibrillation; Z87.891 Personal history of nicotine dependence; Z79.01 Long term (current) use of anticoagulants; Z79.891 Long term (current) use of opiate analgesic
CPT/HCPCS: 73610; 99284

== ENCOUNTER 2021-10-26 07:37 | Outpatient (CLI) | payer OTHER, SELFPAY ==
--- NOTE | ~2021-10-26 | XR_ITS ---
EXAMINATION: XR foot LT min 3V DATE: 10/26/2021 08:02 INDICATION: Charcot left foot. TECHNIQUE: Dorsoplantar, two oblique and lateral views of the left foot were obtained. COMPARISON: Left ankle radiographs dated 10/26/2021 weeks of antibiotic foot and ankle radiographs tasia ed 04/09/2021 FINDINGS: Plain screw fixations across a now healed distal left fibular fracture. There appears to be residual lateral tibiotalar subluxation with widening of the medial clear space but appreciated on the ankle r adiographs. Chronic amputation of the left third toe and transmetatarsal amputations of the distal th ird-fifth metatarsals. Additional osteotomies at the head of the left second metatarsal. The osteotom y margins remaining smooth with no evident progressive osteolysis. Interval progression of joint space narrowing throughout the tarsal metatarsal joints. There is incre asing lucency consistent with osteolysis at the base of the first metatarsal which could be related t o either Charcot joint or osteomyelitis. Interval development of irregular but corticated appearing m argins to the articular cortices at the base of the fifth metatarsal and cuboid. IMPRESSION: 1. Progression of joint space narrowing across the tarsal metatarsal joints with prominent region of progressive osteolysis at the base of the first metatarsal. This could be related to aseptic Charcot joint with secondary osteoarthritis and destructive changes or due to septic arthritis and osteomyeli tis in the appropriate clinical setting. 2. Amputation of the left third toe and osteotomies at the distal aspect of the second-fifth metatars als without findings to suggest osteomyelitis. 3. Healed distal left fibular fracture with plate and screw fixation but with residual lateral sublux ation at the tibiotalar joint. Reviewed, dictated and finalized at location B. IMPRESSION: 1. Progression of joint space narrowing across the tarsal metatarsal joints wit h prominent region of progressive osteolysis at the base of the first metatarsa l. This could be related to aseptic Charcot joint with secondary osteoarthritis and destructive changes or due to septic arthritis and osteomyelitis in the ap propriate clinical setting. 2. Amputation of the left third toe and osteotomies at the distal aspect of the second-fifth metatarsals without findings to suggest osteomyelitis. 3. Healed distal left fibular fracture with plate and screw fixation but with r esidual lateral subluxation at the tibiotalar joint.
--- NOTE | ~2021-10-26 | XR_ITS ---
XR ankle LT min 3V DATE: 10/26/2021 08:03 INDICATION: Left ankle pain. Charcot left foot. TECHNIQUE: 4 views COMPARISON: 04/09/2021 left ankle FINDINGS: Plate and screws are noted along the distal fibular shaft and lateral malleolus 6 transvers e screws. There is healing virtually anatomic position and alignment at the prior fibular fracture of 04/09/2021. There is approximately 5-6 mm lateral subluxation at the tibiotalar joint. No recent fracture is detected. No periosteal reaction or bone destruction. Osteoarthritic changes are noted at the tarsometatarsal joints. IMPRESSION: Lateral subluxation of the tibiotalar joint Status post ORIF distal fibular fracture Reviewed, dictated and finalized at location A.
== END 2021-10-26 07:38 | disposition home or self-care (01) ==
LOC: CHSIMG 07:39
PROVIDERS: PCP Family Medicine; Visit Provider Student in an Organized Health Care Education/Training Program
DX: M14.672 Charcot's joint, left ankle and foot (principal)
CPT/HCPCS: 73610; 73630

== ENCOUNTER 2022-01-02 06:57 | Outpatient (CLI) | payer OTHER, SELFPAY ==
[2022-01-02 07:46] LABS: Alanine Aminotransferase 71 U/L (16-63); Albumin Level 3.5 g/dL (3.4-5.0); Alkaline Phosphatase 194 U/L (46-116); Anion Gap 5 mmol/L (8-16); Aspartate Amino Transferase 57 U/L (15-37); Bilirubin,Total 1.9 mg/dL (0.00-1.00); Blood Urea Nitrogen 28 mg/dL (7-18); Calcium 8.2 mg/dL (8.5-10.1); Carbon Dioxide 27 mmol/L (21-32); Chloride 102 mmol/L (98-108); Digoxin 0.9 ng/mL (0.9-2.0); Estimated Glomerular Filt Rate > 60; Glucose 90 mg/dL (70-99); Osmolality Calculated 283 mOsm/kg (285-295); Potassium 4.7 mmol/L (3.5-5.1); Sodium 134 mmol/L (136-145); Total Protein 6.6 g/dL (6.4-8.2)
== END 2022-01-02 06:58 | disposition home or self-care (01) ==
LOC: CHSLAB 07:00
PROVIDERS: PCP Family Medicine; Visit Provider Internal Medicine Cardiovascular Disease
DX: I25.5 Ischemic cardiomyopathy (principal); Z79.899 Other long term (current) drug therapy
CPT/HCPCS: 36415; 80053; 80162

== ENCOUNTER 2022-02-05 14:44 | Outpatient (CLI) | payer OTHER, SELFPAY ==
--- NOTE | 2022-02-05 14:48 | ECG_ITS ---
Measurements Intervals [place] Rate: 48 P: [place]: 0 QRS: 56 QRSD: 96 T: -22 QT: 396 QTc: 355 Interpretive Statements ATRIAL FIBRILLATION WITH SLOW VENTRICULAR RESPONSE POSSIBLE ANTERIOR MYOCARDIAL INFARCTION, OF INDETERMINATE AGE ABNORMAL ECG COMPARED TO ECG 03/30/2021 11:39:39 NO SIGNIFICANT CHANGES Electronically Signed On 02-06-2022 16:14:38 CDT by Lucian Bach M.D.
[2022-02-05 15:16] LABS: Hematocrit 35.7 % (40.0-54.0); Hemoglobin 11.8 g/dL (14.0-18.0); Immature Platelet Fraction Pct 4.3 % (1.0-7.0); Mean Corpuscular HGB Conc 33.1 g/dL (32.0-36.0); Mean Corpuscular Hemoglobin 31.9 pg (27.0-31.0); Mean Corpuscular Volume 96.5 fL (78.0-102.0); Mean Platelet Volume 10.7 fl (8.7-11.0); Platelet Count Result 71 K/mm3 (150-420); Red Cell Distribution Width 13.9 % (11.6-14.4)
[2022-02-05 15:49] LABS: Alanine Aminotransferase 69 U/L (16-63); Albumin Level 3.6 g/dL (3.4-5.0); Alkaline Phosphatase 181 U/L (46-116); Anion Gap 8 mmol/L (8-16); Aspartate Amino Transferase 52 U/L (15-37); Bilirubin,Total 1.5 mg/dL (0.00-1.00); Blood Urea Nitrogen 20 mg/dL (7-18); Calcium 8.6 mg/dL (8.5-10.1); Carbon Dioxide 27 mmol/L (21-32); Chloride 103 mmol/L (98-108); Estimated Glomerular Filt Rate > 60; Osmolality Calculated 285 mOsm/kg (285-295); Sodium 138 mmol/L (136-145); Total Protein 6.9 g/dL (6.4-8.2)
[2022-02-05 15:51] LABS: Glucose 50 mg/dL (70-99)
[2022-02-11 04:43] LABS: Hepatitis A Antibody IgM Nonreactive; Hepatitis B Core Antibody Nonreactive (Nonreactive); Hepatitis B Surface Antigen Reactive (Nonreactive); Hepatitis C Signal to Cutoff 0.19 ratio (<1.00); Hepatitis C Virus Antibody Nonreactive (Nonreactive)
[2022-02-11 18:46] LABS: Alpha Fetoprotein Tumor Marker 5.8 ng/mL (<6.1)
== END 2022-02-05 14:45 | disposition home or self-care (01) ==
LOC: CHSLAB 14:48
PROVIDERS: PCP Family Medicine; Visit Provider Family Medicine
DX: Z01.818 Encounter for other preprocedural examination (principal); K70.30 Alcoholic cirrhosis of liver without ascites; R74.01 Elevation of levels of liver transaminase levels
CPT/HCPCS: 36415; 80053; 80074; 82105; 85027; 85055; 93005

== ENCOUNTER 2022-02-07 07:24 | Outpatient (CLI) | payer OTHER, SELFPAY ==
--- NOTE | ~2022-02-07 | US_ITS ---
US abdomen limited INDICATION: Alcoholic cirrhosis. PROCEDURE: Realtime right upper abdominal ultrasound. COMPARISON: Ultrasound dated 03/11/2018 FINDINGS: The pancreas is normal without focal mass or pancreatic ductal dilation. Liver echotexture is coarse and heterogeneous with nodular appearance to the liver surface, consistent with cirrhosis. Small amount of ascites adjacent to the liver margin. There is normal directional flow in the lori l vein. There is gallbladder wall thickening measuring 5 mm. No gallstones are identified. Common bile duct measures 3 mm. No sonographic Walker's sign. IMPRESSION: 1: Gallbladder wall thickening. No gallstones are identified. This could indicate interstitial edema, chronic liver disease or chronic cholecystitis. 2: Coarse heterogeneous liver echotexture with nodular surface, compatible with cirrhosis. 3: Trace ascites along the liver margin. Reviewed, dictated and finalized at location B. IMPRESSION: 1: Gallbladder wall thickening. No gallstones are identified. This could indica te interstitial edema, chronic liver disease or chronic cholecystitis. 2: Coarse heterogeneous liver echotexture with nodular surface, compatible wit h cirrhosis. 3: Trace ascites along the liver margin.
== END 2022-02-07 07:25 | disposition home or self-care (01) ==
LOC: CHSIMG 07:25
PROVIDERS: PCP Family Medicine; Visit Provider Family Medicine
DX: K70.30 Alcoholic cirrhosis of liver without ascites (principal)
CPT/HCPCS: 76705

== ENCOUNTER 2022-03-01 14:11 | Outpatient (CLI) | payer OTHER, SELFPAY ==
[2022-03-04 12:04] LABS: Hepatitis B Surface Antibody Nonreactive (Nonreactive)
[2022-03-04 12:07] LABS: Hepatitis Be Antibody Nonreactive; Hepatitis Be Antigen Nonreactive
[2022-03-05 20:31] LABS: Hepatitis B DNA PCR <1.00 Log IU/mL; Hepatitis B DNA PCR <10 IU/mL
[2022-03-08 10:22] LABS: Hepatitis Delta Antibody NEGATIVE
== END 2022-03-01 14:12 | disposition home or self-care (01) ==
LOC: CHSLAB 14:12
PROVIDERS: PCP Family Medicine; Visit Provider Internal Medicine Gastroenterology
DX: B19.10 Unspecified viral hepatitis B without hepatic coma (principal)
CPT/HCPCS: 36415; 86692; 86706; 86707; 87350; 87517

== ENCOUNTER 2022-04-01 12:47 | Outpatient (CLI) | payer OTHER, SELFPAY ==
[2022-04-01 13:28] LABS: INR 1.2; Partial Thromboplastin Time 30.5 SEC (23.90-30.70); Prothrombin Time 12.5 Seconds (9.50-12.10)
[2022-04-01 13:40] LABS: Digoxin 0.4 ng/mL (0.9-2.0)
== END 2022-04-01 12:48 | disposition home or self-care (01) ==
LOC: CHSLAB 12:49
PROVIDERS: PCP Family Medicine; Visit Provider Anesthesiology
DX: K73.9 Chronic hepatitis, unspecified (principal); R78.89 Finding of other specified substances, not normally found in blood
CPT/HCPCS: 36415; 80162; 85610; 85730

== ENCOUNTER 2022-04-04 01:13 | Day surgery (SDC) | payer OTHER, SELFPAY ==
[2022-03-29 09:00] VITALS: BMI 20.8
--- NOTE | 2022-03-29 09:13 | PC.NURSE ---
PRE-OP INSTRUCTIONS, PLEASE READ CAREFULLY Report to the Outpatient Waiting Room, entrance under the green pavilion located off [facility], at time _0700_ on date _04/04/22_. Planned Procedure Time: _0900_. Time changes happen often and if your time is changed the preop area will call you the afternoon before. - You and your visitor will be asked to self-screen and do not enter if you have any COVID symptoms. - Only one visitor is requested with a max of two and NO children visitors are allowed at this time. - The patient visitor may be requested to leave or wait in car when not with patient due to distancing restrictions. - A mask is optional within the hospital. Patients may have clear liquids (water, carbonated beverages, clear teas, apple juice) until 3 hours prior to surgery (0600 AM) with a maximum of 20 ounces. - No food from midnight until time of surgery Take the following medications with a SIP of water the morning of surgery: _DIGOXIN, DULOXETINE, GABAPENTIN, METOPROLOL, FLEXERIL IF NEEDED_ Medications to discontinue - _XARELTO PER DR. HARRIS'S INSTRUCTIONS_ Please no deodorant, or body powder the day of surgery. No jewelry (including any body piercings) or valuables the day of surgery, leave them at home. Please take a shower or bath the night before, or the morning of, surgery with an antibacterial soap. Wear comfortable, loose fitting clothing. - Jewelry must be removed prior to entering the operating room. Rings and piercings that are not removed may be cut off. - The hospital will not accept responsibility for valuables. - Please leave all valuables, including medications, at home the day of surgery. If you are going home after surgery, a licensed shuttle truck driver must drive you home. - NO public transportation without another adult if you receive anesthesia. - We recommend that an adult stay with you for 24 hours following discharge. - We also recommend that you do not drive, make important decision, drink alcoholic beverages, or take any drugs that were not prescribed by your health care provider for at least 24 hours after your discharge time. Follow any additional instructions given to you from your surgeon. If you or anyone in your household have experienced Covid symptoms in the past week, please notify your surgeon or the nurse liaison at the phone number below for possible testing. Telephone instructions given to _PATIENT & MOTHER (USHA)_and asked if any additional questions and then verbalized understanding. Patient advised to call surgeon office or pre surgery nurse liaison [phone] if any additional questions.
--- NOTE | 2022-04-03 08:01 | PM.IMHP ---
H&P: HPI History of Present Illness Date/Time: 04/03/22 08:01 Chief Complaint: Left ankle pain Narrative: 51-year-old status post ORIF left ankle distal fibular fracture. Loss of alignment on radiographs. Patient has pain through the ankle with weight-bearing. Worse with activity. Unrelieved with therapy, bracing. Review of Systems Constitutional: Constitutional: Denies fever(s) Eyes: Eyes: Denies blurry vision ENT: Reports Normal hearing present Cardiovascular: Cardiovascular: Denies chest pain and Denies dyspnea Respiratory: Respiratory: Denies dyspnea and Denies wheezing Gastrointestinal: Gastrointestinal: Denies abdominal pain Genitourinary: Genitourinary: Denies urinary urgency Musculoskeletal: Musculoskeletal: Reports as per HPI and Denies numbness Integumentary/Breasts: Skin/Breast: Denies changing lesions and Denies sores Neurologic: Reports Normal hearing present, Denies behavioral changes, Denies confusion, Denies numbness and Denies convulsions Psychiatric: Psychiatric: Denies behavioral changes, Denies confusion and Denies hallucinations Endocrine: Endocrine: Denies heat intolerance Hematologic/Lymphatic: Hematologic/Lymphatic: Denies easy bleeding Allergic/Immunologic: Allergic/Immunologic: Denies wheezing [facility] Past Medical History Medical History (Updated 04/03/22 @ 08:04 by Anthony Lester MD) Acute myocardial infarction (~2015) Cath with no Stents Alcohol abuse Alcohol dependence Alcoholic cirrhosis of liver Atrial fibrillation Atrial fibrillation (04/29/17) Biatrial enlargement Charcot foot due to diabetes mellitus Charcot's joint of foot, non-diabetic CHF (congestive heart failure) Chronic hepatitis Closed fracture of ankle with malunion Colon cancer screening Connective tissue disease Diabetes mellitus with diabetic neuropathy Essential hypertension History of ingrown nail 04/2017 - -managed by Dr Avila Hyperlipidemia Ischemic cardiomyopathy Nonspecific abnormality on liver isotope scan Peripheral neuropathy due to metabolic disorder Tear of deltoid ligament of left ankle Surgical History Surgical History H/O umbilical hernia repair 03/30/21 Open ventral hernia repair with 6.[address] ventral patch History of foot surgery Left ankle ORIF 04/17/[address] [facility] [place] Left toe amputations Right bunionette 09/02/2021 History of shoulder surgery (~2011) Left Family History Family History Mother Cerebrovascular accident Father Diabetes mellitus Scleroderma Pulmonary hypertension Bile duct cancer Other Neuropathy Social History Social History Smoking packs per day: 1.5 Smoking cigarettes per day: 30.0 Years smoked: 15 Smoking pack-years: 22.50 Smoking status: Former smoker Tobacco type: cigarettes Second hand tobacco smoke exposure: No Smoking end date: 04/14/03 Alcohol intake: former Alcohol use details: 5TH A DAY - Substance use: never Substance use type: does not use Other substance usage details: HIGH SCHOOL Additional living arrangements comments: LIVES MOTHER (USHA) Additional occupation/education comments: [employer] Gender identity (if verbalized by the patient): Male Sexual Orientation (if Verbalized by the Patient): Straight or Heterosexual Spiritual care concerns: No Meds Home Medications and Allergies Home Medications Medication Instructions Recorded Confirmed Type atorvastatin 80 mg tablet 80 mg PO DAILY #90 tabs 03/15/19 04/02/22 Rx calcium carbonate 600 mg calcium 600 mg PO DAILY #90 tabs 03/15/19 04/02/22 Rx (1,500 mg) tablet (Calcium) thiamine HCl (vitamin B1) 100 mg 100 mg PO DAILY #90 tabs 03/15/19 04/02/22 Rx tablet digoxin 250 mcg (0.25 mg) tablet 250 mcg PO DAILY #90 tabs 06/29/19 04/02/22 Rx f
[2022-04-04] VITALS (9 sets, daily range): BP systolic 97–137; BP diastolic 49–85; PULSE 50–90; RESP 12–16; TEMP 36.3–36.6; O2SAT 98–100
--- NOTE | ~2022-04-04 | XR_ITS ---
EXAMINATION: XR surgery orthopedic DATE: 04/04/2022 12:44 INDICATION: Left ankle deltoid ligament rupture. TECHNIQUE: 3 intraoperative spot fluoroscopic views of left ankle were obtained. I was not present. F luoroscopy exposure time was 58 seconds. COMPARISON: Ankle radiographs 10/26/2021 FINDINGS: The plate and screws have been removed from the fibula. There is new internal fixation of t he distal fibula and tibiofibular syndesmosis with lateral plate and multiple screws. There is a fixa tion device anterior to distal tibia from the deltoid ligament reconstruction. Widening of the medial ankle mortise has improved. IMPRESSION: 1. Left ankle instrumentation. Reviewed, dictated and finalized at location A. DOCTORAL RESEARCH FELLOW
--- NOTE | 2022-04-04 07:03 | WPDHPUPDATE1 ---
History and Physical Update Update Date/Time: 04/04/22 07:03 History and Physical has been reviewed, including an updated exam of the patient. There are NO changes in the patient's condition. Risks, benefits, and alternatives have been discussed and questions answered. Patient agrees to proceed with procedure.
[2022-04-04] MEDS: ACETAMINOPHEN 500 MG TABLET 1000 MG PO (07:30)
[2022-04-04] MEDS: LACTATED RINGERS 1,000 ML 30 ML IV CONT ×2 (07:40→13:09)
--- NOTE | 2022-04-04 08:09 | WPDANESEPPF ---
Anes - Initial Pre Proc Eval Procedure: Operation Date: 04/04/22 09:00 Proposed Procedures p Reconstruction Left Ankle Distal Fibula Malunion, Repair Deltoid Ligament - Anthony Lester MD s Removal Hardware Left Ankle - Anthony Lester MD Date/Time: 04/04/22 08:09 Surgeon: Anthony Lester MD Pre Op Diagnosis: Lt Ankle Fx Malnunion, Deltoid Ligament Rupture Patient Data Age: 51 Gender: M Height: 1.88 m Weight: 73.63 kg Allergies Allergy/AdvReac Type Severity Reaction Status Date / Time No Known Allergies Allergy Verified 04/04/22 07:35 Home Medications Medication Instructions Recorded Confirmed Type atorvastatin 80 mg tablet 80 mg PO DAILY #90 tabs 03/15/19 04/04/22 Rx calcium carbonate 600 mg calcium 600 mg PO DAILY #90 tabs 03/15/19 04/04/22 Rx (1,500 mg) tablet (Calcium) thiamine HCl (vitamin B1) 100 mg 100 mg PO DAILY #90 tabs 03/15/19 04/04/22 Rx tablet digoxin 250 mcg (0.25 mg) tablet 250 mcg PO DAILY #90 tabs 06/29/19 04/04/22 Rx furosemide 20 mg tablet 20 mg PO QAM #90 tabs 06/29/19 04/04/22 Rx lisinopril 20 mg tablet 20 mg PO DAILY #90 tabs 06/29/19 04/04/22 Rx rivaroxaban 20 mg tablet (Xarelto) 20 mg PO DAILY #90 tabs 01/04/20 04/04/22 Rx duloxetine 60 mg capsule,delayed 60 mg PO DAILY #90 caps 02/25/22 04/04/22 Rx release (Cymbalta) entecavir 0.5 mg tablet 0.5 mg PO DAILY #30 tabs 03/21/22 04/04/22 Rx cyclobenzaprine 10 mg tablet 10 mg PO TID PRN Spasms 04/02/22 04/04/22 History gabapentin 300 mg capsule 300 mg PO BID 04/02/22 04/04/22 History metoprolol succinate 200 mg 200 mg PO DAILY 04/02/22 04/04/22 History tablet,extended release 24 hr Patient hx anesthesia problems: none Family hx anesthesia problems: none Results Review: All pre-operative results and documents have been reviewed as part of the pre-operative evaluation. [facility] Past Medical History Medical History Acute myocardial infarction (~2015) Cath with no Stents Alcohol abuse Alcohol dependence Alcoholic cirrhosis of liver Atrial fibrillation Atrial fibrillation (04/29/17) Biatrial enlargement Charcot foot due to diabetes mellitus Charcot's joint of foot, non-diabetic CHF (congestive heart failure) Chronic hepatitis Closed fracture of ankle with malunion Colon cancer screening Connective tissue disease Diabetes mellitus with diabetic neuropathy Essential hypertension History of ingrown nail 04/2017 - -managed by Dr Avila Hyperlipidemia Ischemic cardiomyopathy Nonspecific abnormality on liver isotope scan Peripheral neuropathy due to metabolic disorder Tear of deltoid ligament of left ankle Surgical History Surgical History H/O umbilical hernia repair 03/30/21 Open ventral hernia repair with 6.[address] ventral patch History of foot surgery Left ankle ORIF 04/17/[address] [facility] Left toe amputations Right bunionette 09/02/2021 History of shoulder surgery (~2011) Left Family History Family History Mother Cerebrovascular accident Father Diabetes mellitus Scleroderma Pulmonary hypertension Bile duct cancer Other Neuropathy Social History Social History Smoking packs per day: 1.5 Smoking cigarettes per day: 30.0 Years smoked: 15 Smoking pack-years: 22.50 Smoking status: Former smoker Tobacco type: cigarettes Second hand tobacco smoke exposure: No Smoking end date: 04/14/03 Alcohol intake: former Alcohol use details: 5TH A DAY - Substance use: never Substance use type: does not use Other substance usage details: HIGH SCHOOL Living arrangements: with family Additional living arrangements comments: LIVES MOTHER (USHA) Additional occupation/education comments: [employer] Gender identity (if verbalized by the patie
[2022-04-04] MEDS: KETOROLAC 15 MG/ML VIAL (*BKC) IV PUSH (08:30)
--- NOTE | 2022-04-04 09:24 | WPDANESPNB ---
Anes - Peripheral Nerve Block Date/Time: 04/04/22 09:24 I have discussed with the patient/family/POA the placement of a peripheral nerve block for post-operative pain management, including associated risks, benefits, complications, and side effects. Alternative methods of post-operative analgesia were detailed. Questions were solicited and answers provided to the satisfaction of the patient/family/POA. Time-Out: A pre-procedural Time-Out was completed immediately before starting the procedure and confirmed: Patient Identification, Site, Procedure, Patient Position and the Availability of Requisite Equipment. Clinical Indications: Acute post-operative pain management requested by the operative surgeon. Nerve Block Insertion Note Anes-nerve block: posterior fossa sciatic left and other (saphenous) Patient position: supine Skin prep: chlorhexidine Needle: 22 gauge, stimulating, insulated echogenic needle. Needle length: 80 mm Technique: nerve stimulation lost at (mA) (0.5) Injectate: bupivacaine 0.5% with epi 5 mcg/ml (25cc popliteall, 10cc saphenous) and dexamethasone (mg) (8) Procedure start time:: 915 Procedure end time:: 923
[2022-04-04] MEDS: ceFAZolin 2 GM/D5W 50 ML 2 GM/50 ML BAG IVPB (09:33)
[2022-04-04] MEDS: BUPIVACAINE HCL 0.5% PF 30 ML VIAL INFILTRATE (10:03)
--- NOTE | 2022-04-04 13:11 | W.PM.PROC2 ---
Procedure Note - Detailed Date of Procedure 04/04/22 Pre-op Diagnosis Lt Ankle Fx Malnunion, Deltoid Ligament Rupture Post-op Diagnosis Same Procedure Performed Repair fibular malunion with reconstruction left ankle, reconstruction deltoid ligament with graft. Arthrodesis distal syndesmosis left ankle. Removal of hardware left fibula. Surgeon Anthony Lester MD Continuous Dryout Operator Helper senior administrative assistant Anesthesia General Indications 51-year-old gentleman who sustained a left ankle fracture and ligament injury. Has gone on to a malunion with subluxation. Presents now for operative reconstruction. Description of Procedure After informed consent, the operative extremity was marked in the preoperative holding area. Patient received intravenous antibiotics. Patient was then taken to the operating room and underwent general anesthesia by the anesthesia team. They were positioned supine on the operating room table. A time-out was performed confirming the patient, site of the surgery, operative plan. Left Lower extremity then prepped and draped in the usual sterile surgical fashion using ChloraPrep skin solution. Foot and ankle exsanguinated and a thigh tourniquet inflated to 250 mmHg. Longitudinal incision made over the lateral ankle distal fibula with a 15 blade knife. previous incision utilized. Hemostasis controlled with electrocautery. Full-thickness soft tissue flaps developed and the fascia was incised in line with the skin incision. Lateral plate and screws identified and removed with a screwdriver. Rongeur were used to remove any bone growth around the plate. Wound irrigated. Malunion was then demarcated with help of fluoroscopy. A sagittal saw was used to rete osteotomy minus the fibula. The distal aspect was then displaced distally to reduce the fracture and the ankle mortise. This was provisionally pinned in checked with image intensification. Fixation achieved with a 3.5 millimeter fully-threaded cortical screw placed in lag technique across the Osteotomy x2. Neutralization with a lateral plate with unicortical screws distal to fracture and bicortical screws proximal to the fracture. Good alignment and stability of the osteotomy noted. dissection then in the distal tib-fib syndesmosis with 15 blade knife. Rongeur used to remove scar tissue and soft tissue and freshen up the bone ends. Fixation of the syndesmosis then achieved with 4.0 mm cancellous screws placed lateral to medial. Image intensification confirmed final placement of the hardware. Deltoid ligament then addressed. The medial incision was utilized and made again with a 15 blade knife. Hemostasis controlled electrocautery. Fascia incised in line with skin incision. The deltoid was noted to be disrupted. Allograft hamstring tendon was then prepared on the back table. Drill hole was placed in the medial malleolus and the graft was placed in the medial malleolus with the cortical button transferred out of the tibia anteriorly. This left 2 limbs of the graft distally. One limb was placed into the medial talus and anchored with 4.75 x 15 mm interference screw. The 2nd limb was then placed into the sustentaculum of the calcaneus and again anchored with a 4.75 x 15 mm interference screw. Stress of the ankle performed with good stability of the ankle mortise in all directions. Wound thoroughly irrigated with solution. Fascia repaired with 00 Vicryl interrupted suture. Subcutaneous tissue repaired with 000 Monocryl interrupted suture and Huber for the skin. Sterile dressings applied. Patient awoken from anesthesia, extubated and taken to the recovery room in stable condition. All sponge, needle and instrument counts correct at the end of the case. Palpable dorsalis pedis pulse noted prior to dressing. Implants Arthrex distal fibula locking plate and screws. Estimated Blood Loss 75 Tourniquet Time 123 Drains No Packing No Pathology None sent Complications None Condition Sta
== END 2022-04-04 14:47 | disposition home or self-care (01) ==
PROVIDERS: PCP Family Medicine; Visit Provider Orthopaedic Surgery
PROC: (CPT 27726; principal; 2022-04-04 09:00)
PROC: (CPT 27726; 2022-04-04 09:00)
DX: S82.832P Other fracture of upper and lower end of left fibula, subsequent encounter for closed fracture with malunion (principal); S93.422D Sprain of deltoid ligament of left ankle, subsequent encounter; M25.372 Other instability, left ankle; W19.XXXD Unspecified fall, subsequent encounter; G89.18 Other acute postprocedural pain; E11.610 Type 2 diabetes mellitus with diabetic neuropathic arthropathy; E78.5 Hyperlipidemia, unspecified; E11.42 Type 2 diabetes mellitus with diabetic polyneuropathy; I11.0 Hypertensive heart disease with heart failure; I50.9 Heart failure, unspecified; I48.91 Unspecified atrial fibrillation; K70.30 Alcoholic cirrhosis of liver without ascites; I25.5 Ischemic cardiomyopathy; Z87.891 Personal history of nicotine dependence
CPT/HCPCS: 27726; 27829; 27695; 64450; 64445; 99199; A9270; C1713; J0690; J1040; J1100; J1885; J2250; J2370; J2405; J2704; J3010; J7120

== ENCOUNTER 2022-04-10 00:46 | Day surgery (SDC) | payer OTHER, SELFPAY ==
[2022-04-02 14:48] VITALS: BMI 20.7
[2022-04-10 11:18] VITALS: BP 118/84; PULSE 97; RESP 16; TEMP 36.3; O2SAT 98; BMI 18.8
[2022-04-10] MEDS: LACTATED RINGERS 1,000 ML 150 ML IV CONT (11:27)
--- NOTE | 2022-04-10 11:34 | WPDANESEPPF ---
Anes - Initial Pre Proc Eval Procedure: Operation Date: 04/10/22 12:30 Proposed Procedures p Esophagogastroduodenoscopy & Screening Colonoscopy - Jun Reid MD Date/Time: 04/10/22 11:34 Surgeon: Jun Reid MD Pre Op Diagnosis: cirrhosis, neoplasm screening Patient Data Age: 51 Gender: M Height: 1.88 m Weight: 66.7 kg Last Vital Signs Temp 97.3 F L 04/10/22 11:18 Pulse 97 04/10/22 11:18 Resp 16 04/10/22 11:18 BP 118/84 04/10/22 11:18 Pulse Ox 98 04/10/22 11:18 O2 Del Method Room Air 04/10/22 11:18 Allergies Allergy/AdvReac Type Severity Reaction Status Date / Time No Known Allergies Allergy Verified 04/10/22 11:16 Home Medications Medication Instructions Recorded Confirmed Type atorvastatin 80 mg tablet 80 mg PO DAILY #90 tabs 03/15/19 04/10/22 Rx calcium carbonate 600 mg calcium 600 mg PO DAILY #90 tabs 03/15/19 04/10/22 Rx (1,500 mg) tablet (Calcium) thiamine HCl (vitamin B1) 100 mg 100 mg PO DAILY #90 tabs 03/15/19 04/10/22 Rx tablet digoxin 250 mcg (0.25 mg) tablet 250 mcg PO DAILY #90 tabs 06/29/19 04/10/22 Rx furosemide 20 mg tablet 20 mg PO QAM #90 tabs 06/29/19 04/10/22 Rx lisinopril 20 mg tablet 20 mg PO DAILY #90 tabs 06/29/19 04/10/22 Rx rivaroxaban 20 mg tablet (Xarelto) 20 mg PO DAILY #90 tabs 01/04/20 04/10/22 Rx duloxetine 60 mg capsule,delayed 60 mg PO DAILY #90 caps 02/25/22 04/10/22 Rx release (Cymbalta) entecavir 0.5 mg tablet 0.5 mg PO DAILY #30 tabs 03/21/22 04/10/22 Rx cyclobenzaprine 10 mg tablet 10 mg PO TID PRN Spasms 04/02/22 04/10/22 History gabapentin 300 mg capsule 300 mg PO BID 04/02/22 04/10/22 History metoprolol succinate 200 mg 200 mg PO DAILY 04/02/22 04/10/22 History tablet,extended release 24 hr ondansetron 8 mg disintegrating 8 mg PO Q8H PRN nausea and 04/04/22 04/10/22 Rx tablet vomiting #10 tabs hydrocodone 7.5 mg-acetaminophen 1 tablet PO Q4-6H PRN pain #30 tabs 04/09/22 04/10/22 Rx 325 mg tablet sennosides 8.6 mg-docusate sodium 1 tab-cap PO BID PRN constipation 04/09/22 04/10/22 Rx 50 mg tablet (Senna with Docusate #20 tabs Sodium) Patient hx anesthesia problems: none Family hx anesthesia problems: none Results Review: All pre-operative results and documents have been reviewed as part of the pre-operative evaluation. [facility] Past Medical History Medical History (Updated 04/09/22 @ 11:57 by Anthony Lester MD) Acute myocardial infarction (~2015) Cath with no Stents Alcohol abuse Alcohol dependence Alcoholic cirrhosis of liver Atrial fibrillation Atrial fibrillation (04/29/17) Biatrial enlargement Charcot foot due to diabetes mellitus Charcot's joint of foot, non-diabetic CHF (congestive heart failure) Chronic hepatitis Closed fracture of ankle with malunion Colon cancer screening Connective tissue disease Diabetes mellitus with diabetic neuropathy Encounter for postoperative care Essential hypertension History of ingrown nail 04/2017 - -managed by Dr Avila Hyperlipidemia Ischemic cardiomyopathy Nonspecific abnormality on liver isotope scan Peripheral neuropathy due to metabolic disorder Tear of deltoid ligament of left ankle Surgical History Surgical History H/O umbilical hernia repair 03/30/21 Open ventral hernia repair with 6.[address] ventral patch History of foot surgery Left ankle ORIF 04/17/[address] [facility] Left toe amputations Right bunionette 09/02/2021 History of shoulder surgery (~2011) Left Family History Family History Mother Cerebrovascular accident Father Diabetes mellitus Scleroderma Pulmonary hypertension Bile duct cancer Other Neuropathy Social History Social History Smoking packs per day: 1.5 Smoking cigarettes per day: 30.0 Years sm
--- NOTE | 2022-04-10 11:55 | WPDHPUPDATE1 ---
History and Physical Update Update Date/Time: 04/10/22 11:55 History and Physical has been reviewed, including an updated exam of the patient. There are NO changes in the patient's condition. Risks, benefits, and alternatives have been discussed and questions answered. Patient agrees to proceed with procedure.
--- NOTE | 2022-04-10 12:26 | SUR.OPER ---
EGD START 1206, END 1209 COLONOSCOPY START 1214, END 1225
[2022-04-10 12:35] VITALS: BP 100/69; PULSE 78; RESP 16; O2SAT 99
[2022-04-10 12:45] VITALS: BP 113/80; PULSE 81; RESP 34; O2SAT 100
[2022-04-10 12:55] VITALS: BP 120/82; PULSE 80; RESP 24; O2SAT 100
== END 2022-04-10 13:02 | disposition home or self-care (01) ==
PROVIDERS: PCP Family Medicine; Visit Provider Internal Medicine Gastroenterology
PROC: 0DJ08ZZ Inspection of Upper Intestinal Tract, Via Natural or Artificial Opening Endoscopic (ICD-10-PCS; CPT 43235; principal; 2022-04-10 12:30)
DX: Z12.11 Encounter for screening for malignant neoplasm of colon (principal); K57.30 Diverticulosis of large intestine without perforation or abscess without bleeding; K64.8 Other hemorrhoids; K29.70 Gastritis, unspecified, without bleeding; I48.91 Unspecified atrial fibrillation; I11.0 Hypertensive heart disease with heart failure; I50.9 Heart failure, unspecified; E11.610 Type 2 diabetes mellitus with diabetic neuropathic arthropathy; I25.2 Old myocardial infarction; K70.30 Alcoholic cirrhosis of liver without ascites; E11.40 Type 2 diabetes mellitus with diabetic neuropathy, unspecified; E78.5 Hyperlipidemia, unspecified; I25.5 Ischemic cardiomyopathy; Z79.01 Long term (current) use of anticoagulants; Z87.891 Personal history of nicotine dependence; F10.20 Alcohol dependence, uncomplicated
CPT/HCPCS: 45378; 43235; J2704; J7120

== ENCOUNTER 2022-04-29 08:42 | Outpatient (CLI) | payer OTHER, SELFPAY ==
--- NOTE | ~2022-04-29 | XR_ITS ---
XR ankle LT min 3V DATE: 04/29/2022 09:03 INDICATION: Continued pain after injury one year ago. Reconstructive surgery in March 2022. TECHNIQUE: 3 views COMPARISON: 04/09/2022 left ankle FINDINGS: There are skin kin along the medial ankle and lateral lower leg and ankle. Plate along lateral aspect of the distal fibular shaft and lateral malleolus with numerous through screws. There are a couple of additional anteroposteriorly directed screws through the distal fibula. Small plate a long the anterior tibial diametaphysis. There is minimal widening of the ankle mortise medially. This appears improved since 04/09/2022. Cast overlies the lower leg and ankle and foot. Prominent osteoarthritic change at the tarsometatarsal area and deformities of the distal metatarsal bones is demonstrated to better advantage on 10/26/2021 left foot radiographic examination. IMPRESSION: Postoperative changes Reviewed, dictated and finalized at location B. RNMENT AFFAIRS FELLOW IMPRESSION: Postoperative changes
== END 2022-04-29 08:43 | disposition home or self-care (01) ==
LOC: CHSIMG 08:44
PROVIDERS: PCP Family Medicine; Visit Provider Orthopaedic Surgery
DX: M25.572 Pain in left ankle and joints of left foot (principal); Z98.890 Other specified postprocedural states
CPT/HCPCS: 73610

== ENCOUNTER 2022-09-19 08:06 | Outpatient (CLI) | payer OTHER, SELFPAY ==
[2022-09-19 08:52] LABS: Anion Gap 3 mmol/L (8-16); Blood Urea Nitrogen 18 mg/dL (9-20); Calcium 8.4 mg/dL (8.4-10.2); Carbon Dioxide 29 mmol/L (22-30); Chloride 104 mmol/L (98-107); Estimated Glomerular Filt Rate > 60; Glucose 89 mg/dL (65-110); Potassium 4.3 mmol/L (3.4-5.0); Sodium 136 mmol/L (137-145)
[2022-09-19 08:58] LABS: INR 1.2; Partial Thromboplastin Time 32.9 SECONDS (22.3-36.8); Prothrombin Time 15.2 Seconds (11.1-14.7)
== END 2022-09-19 08:07 | disposition home or self-care (01) ==
LOC: ANHSURGERY 08:11
PROVIDERS: Anesthesiology; PCP Family Medicine; Visit Provider Orthopaedic Surgery
DX: K70.30 Alcoholic cirrhosis of liver without ascites (principal); Z79.899 Other long term (current) drug therapy; Z01.818 Encounter for other preprocedural examination
CPT/HCPCS: 36415; 80048; 85610; 85730

== ENCOUNTER 2022-09-19 08:38 | Outpatient (CLI) | payer OTHER, SELFPAY ==
--- NOTE | ~2022-09-19 | US_ITS ---
Limited Abdominal Sonogram: Real-time sonographic imaging of the right upper quadrant was performed. Clinical History: Hepatitis B Findings: The liver appears mildly heterogeneous, with no evidence of mass lesion or bile duct dilat ation. Main portal vein demonstrates normal direction of flow. The gallbladder is well distended, and appears normal with no evidence of gallstone or wall thickening. The common bile duct measures 5 mm. The visualized pancreas, aorta, and IVC are unremarkable. Impression: Mildly heterogeneous hepatic echotexture. This could reflect fatty infiltration or other chronic live r disease. Reviewed, dictated and finalized at location . Impression: Mildly heterogeneous hepatic echotexture. This could reflect fatty infiltration or other chronic liver disease.
== END 2022-09-19 08:39 | disposition home or self-care (01) ==
LOC: ANHIMG 08:39
PROVIDERS: PCP Family Medicine; Visit Provider Internal Medicine Gastroenterology
DX: B19.10 Unspecified viral hepatitis B without hepatic coma (principal); K70.30 Alcoholic cirrhosis of liver without ascites
CPT/HCPCS: 76705

== ENCOUNTER 2022-10-03 01:42 | Day surgery (SDC) | payer OTHER, SELFPAY ==
[2022-09-18 15:33] VITALS: BMI 20.5
--- NOTE | 2022-09-18 15:40 | PC.NURSE ---
Report to the Outpatient Waiting Room, entrance under the green pavilion located off [facility], at time 7:00 on date 09/26/22. Planned Procedure Time: 9:00. Time changes happen often and if your time is changed the preop area will call you the afternoon before. - You and your visitor will be asked to self-screen and do not enter if you have any COVID symptoms. - A mask is optional within the hospital at this time. Patients may have clear liquids (water, carbonated beverages, clear teas, apple juice) until 3 hours prior to surgery with a maximum of 20 ounces. - No food from midnight until time of surgery Take the following medications with a SIP of water the morning of surgery: CEPHALEXIN, CYCLOBENZAPRINE IF NEEDED, ENTECAVIR, GABAPENTIN, PAIN PILL IF NEEDED, METOPROLOL DO NOT STOP ANY OF YOUR OTHER PRESCRIPTION MEDICATIONS PRIOR TO SURGERY ?EXCEPT THE FOLLOWING Medications to discontinue per physician: VITAMINS/SUPPLEMENTS Date to take last dose: 09/22/[address] HARRIS REGARDING XARELTO Please no make-up, nail hungarian, hairspray, perfume, deodorant, or body powder the day of surgery. No jewelry (including any body piercings) or valuables the day of surgery, leave them at home. Please take a shower or bath the night before, or the morning of, surgery with an antibacterial soap. Wear comfortable, loose fitting clothing. - Jewelry must be removed prior to entering the operating room. Rings and piercings that are not removed may be cut off. - The hospital will not accept responsibility for valuables. - Please leave all valuables, including medications, at home the day of surgery. If you are going home after surgery, a licensed light truck driver must drive you home. - NO public transportation without another adult if you receive anesthesia. - We recommend that an adult stay with you for 24 hours following discharge. - We also recommend that you do not drive, make important decision, drink alcoholic beverages, or take any drugs that were not prescribed by your health care provider for at least 24 hours after your discharge time. Follow any additional instructions given to you from your surgeon. If you or anyone in your household have experienced Covid symptoms in the past week, please notify your surgeon or the nurse liaison at the phone number below for possible testing. Telephone instructions given to CHITRA SCHULTE and asked if any additional questions and then verbalized understanding. Patient advised to call surgeon office or pre surgery nurse liaison [phone] if any additional questions.
--- NOTE | 2022-09-27 14:35 | PC.NURSE ---
PT GIVEN NEW DATE AND TIME FOR RESCHEDULED SURGERY. DENIES ANY CHANGE IN HEALTH OR MEDICATION. PT DENIES QUESTIONS.
--- NOTE | 2022-09-27 14:36 | PC.NURSE ---
Report to the Outpatient Waiting Room, entrance under the green pavilion located off [facility], at time _1130_ on date 10/03/22_. Planned Procedure Time: _1330_. Time changes happen often and if your time is changed the preop area will call you the afternoon before. - You and your visitor will be asked to self-screen and do not enter if you have any COVID symptoms. - A mask is optional within the hospital at this time. Patients may have clear liquids (water, carbonated beverages, clear teas, apple juice) until 3 hours prior to surgery with a maximum of 20 ounces. - No food from midnight until time of surgery - Infants may have breast milk until 4 hours before surgery, formula 6 hours prior to surgery. - Children will be allowed to drink immediately following surgery. If applicable, please bring a bottle or sippy cup to assist with drinking. Juice, water, soda, and popsicles are readily available. For infants on formula, please bring formula the day of surgery. Pacifiers are allowed. Take the following medications with a SIP of water the morning of surgery: _CEPHALEXIN, ENTECAVIR, GABAPENTIN, METOPROLOL TAKE CYCLOBENZIPRINE AND PAIN MEDCATION IF NEEDED DO NOT STOP ANY OF YOUR OTHER PRESCRIPTION MEDICATIONS PRIOR TO SURGERY ?EXCEPT THE FOLLOWING Medications to discontinue per physician _VITAMINS AND SUPPLIMENTS 09/22/22, PT HAS STOPPED XARELTO PER ALEJANDRA SUNG INSTRUCTIONS Date to take last dose Please no make-up, nail belgian, hairspray, perfume, deodorant, or body powder the day of surgery. No jewelry (including any body piercings) or valuables the day of surgery, leave them at home. Please take a shower or bath the night before, or the morning of, surgery with an antibacterial soap. Wear comfortable, loose fitting clothing. Children are encouraged to wear pajamas. - Jewelry must be removed prior to entering the operating room. Rings and piercings that are not removed may be cut off. - The hospital will not accept responsibility for valuables. - Please leave all valuables, including medications, at home the day of surgery. If you are going home after surgery, a licensed school boat driver must drive you home. - NO public transportation without another adult if you receive anesthesia. - We recommend that an adult stay with you for 24 hours following discharge. - We also recommend that you do not drive, make important decision, drink alcoholic beverages, or take any drugs that were not prescribed by your health care provider for at least 24 hours after your discharge time. For Pediatric surgeries, we recommend two adults accompany the child home. Follow any additional instructions given to you from your surgeon. If you or anyone in your household have experienced Covid symptoms in the past week, please notify your surgeon or the nurse liaison at the phone number below for possible testing. Telephone instructions given to patient_and asked if any additional questions and then verbalized understanding. Patient advised to call surgeon office or pre surgery nurse liaison [phone] if any additional questions.
[2022-10-03] VITALS (8 sets, daily range): BP systolic 99–122; BP diastolic 58–90; PULSE 69–83; RESP 12–20; TEMP 36.1–37.3; O2SAT 96–100
--- NOTE | ~2022-10-03 | XR_ITS ---
EXAMINATION: XR surgery orthopedic DATE: 10/03/2022 13:20 CDT INDICATION: RT FOOT IN OR/ HAMMERTOE CORRECTION/ DEBRIDEMENT ULCER . TECHNIQUE: 3 fluoroscopic images of the right foot were obtained during hammertoe correction and ulce r debridement performed by the surgeon. I was not present in the operating room. Fluoroscopy exposure time was 23 seconds. Air Kerma 0.1607 mGy. DAP 2.4267 mGym2. COMPARISON: None FINDINGS: In fixation of the fourth ray. Soft tissue gas and irregularity over the fourth MTP joint and lateral soft tissues. Distal fifth metatarsal amputation. IMPRESSION: Fluoroscopic documentation of hammertoe correction and ulcer debridement. Please refer to the operati ve note for complete procedural details . Reviewed, dictated and finalized at location K. IMPRESSION: Fluoroscopic documentation of hammertoe correction and ulcer debridement. Elisa e refer to the operative note for complete procedural details .
--- NOTE | ~2022-10-03 | XR_ITS ---
EXAMINATION: XR surgery orthopedic DATE: 10/03/2022 13:00 CDT INDICATION: LT FOOT . TECHNIQUE: 3 fluoroscopic images of the left foot were obtained during a surgical procedure performed by the surgeon. I was not present in the operating room. Fluoroscopy exposure time was 25 seconds. A ir Kerma 0.1725 mGy. DAP 2.6041 mGym2. COMPARISON: None FINDINGS: There is a pin through the second ray. An additional portion of hardware is deployed over the second PIP joint. IMPRESSION: Fluoroscopic documentation of left foot surgery, apparent joint effusion. Please refer to the operati ve note for complete procedural details . Reviewed, dictated and finalized at location K. IMPRESSION: Fluoroscopic documentation of left foot surgery, apparent joint effusion. Elisa headley refer to the operative note for complete procedural details .
[2022-10-03] MEDS: LACTATED RINGERS 1,000 ML 30 ML IV CONT ×2 (10:30→14:55)
[2022-10-03] MEDS: KETOROLAC 15 MG/ML VIAL (*BKC) IV PUSH (11:00)
[2022-10-03] MEDS: ACETAMINOPHEN 500 MG TABLET 1000 MG PO (11:00)
--- NOTE | 2022-10-03 11:13 | WPDANESEPPF ---
Anes - Initial Pre Proc Eval Procedure: Operation Date: 10/03/22 12:00 Proposed Procedures p Hammertoe Correction Right Foot Fourth Digit, Left Foot Second Digit - Anthony Lester MD s Right Foot Excision Exostosis, Debridement Ulcer with Possible Graft Application - Anthony Lester MD Date/Time: 10/03/22 11:13 Surgeon: Anthony Lester MD Pre Op Diagnosis: Lt 2nd Hammertoe Rt 4th Hammertoe Patient Data Age: 51 Gender: M Height: 1.88 m Weight: 72.6 kg Allergies Allergy/AdvReac Type Severity Reaction Status Date / Time No Known Allergies Allergy Verified 10/03/22 11:13 Home Medications Medication Instructions Recorded Confirmed Type atorvastatin 80 mg tablet 80 mg PO DAILY #90 tabs 03/15/19 10/03/22 Rx calcium carbonate 600 mg calcium 600 mg PO DAILY #90 tabs 03/15/19 10/03/22 Rx (1,500 mg) tablet (Calcium) thiamine HCl (vitamin B1) 100 mg 100 mg PO DAILY #90 tabs 03/15/19 10/03/22 Rx tablet furosemide 20 mg tablet 20 mg PO QAM #90 tabs 06/29/19 10/03/22 Rx lisinopril 20 mg tablet 20 mg PO DAILY #90 tabs 06/29/19 10/03/22 Rx rivaroxaban 20 mg tablet (Xarelto) 20 mg PO DAILY #90 tabs 01/04/20 10/03/22 Rx entecavir 0.5 mg tablet 0.5 mg PO DAILY #30 tabs 03/21/22 10/03/22 Rx cyclobenzaprine 10 mg tablet 10 mg PO TID PRN Spasms #90 tabs 04/17/22 10/03/22 Rx gabapentin 300 mg capsule See Rx Instructions .Route 08/27/22 10/03/22 Rx .COMPLEX #180 caps metoprolol succinate 200 mg 100 mg PO DAILY 09/04/22 10/03/22 History tablet,extended release 24 hr cephalexin 500 mg capsule 500 mg PO Q8H 14 days #42 caps 09/17/22 10/03/22 Rx hydrocodone 5 mg-acetaminophen 325 1 tablet PO Q8H PRN pain #30 tabs 09/27/22 10/03/22 Rx mg tablet Patient hx anesthesia problems: none Family hx anesthesia problems: none Results Review: All pre-operative results and documents have been reviewed as part of the pre-operative evaluation. [facility] Past Medical History Medical History (Updated 09/17/22 @ 12:17 by Anthony Lester MD) Acute myocardial infarction (~2015) Cath with no Stents Alcohol abuse Alcohol dependence Alcoholic cirrhosis of liver Atrial fibrillation Atrial fibrillation (04/29/17) Biatrial enlargement Charcot foot due to diabetes mellitus Charcot's joint of foot, non-diabetic CHF (congestive heart failure) Chronic hepatitis Closed fracture of ankle with malunion Colon cancer screening Connective tissue disease Diabetes mellitus with diabetic neuropathy Encounter for postoperative care Essential hypertension Exostosis of right foot Foot ulcer, limited to breakdown of skin Hammertoe of left foot History of ingrown nail 04/2017 - -managed by Dr Avila Hyperlipidemia Ischemic cardiomyopathy 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 Left toe amputations Right bunionette 09/02/2021 History of shoulder surgery (~2011) Left Family History Family History Mother Cerebrovascular accident Father Diabetes mellitus Scleroderma Pulmonary hypertension Bile duct cancer Other Neuropathy Social History Social History Smoking packs per day: 1.25 Smoking cigarettes per day: 25.0 Years smoked: 14 Smoking pack-years: 17.50 Smoking status: Former smoker Tobacco type: cigarettes Second hand tobacco smoke exposure: No Smoking end date: 04/14/01 Alcohol intake: former Alcohol use details: QUIT MAY 2021 Substance use: f
--- NOTE | 2022-10-03 12:29 | WPDHPUPDATE1 ---
History and Physical Update Update Date/Time: 10/03/22 12:29 History and Physical has been reviewed, including an updated exam of the patient. There are NO changes in the patient's condition. Risks, benefits, and alternatives have been discussed and questions answered. Patient agrees to proceed with procedure.
[2022-10-03] MEDS: ceFAZolin 2 GM/D5W 50 ML 2 GM/50 ML BAG IVPB (12:39)
[2022-10-03] MEDS: BUPivacaine HCL 0.5% 10 ML AMP 30 ML INFILTRATE (14:10)
--- NOTE | 2022-10-03 15:03 | W.PM.PROC2 ---
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 Fixed hammertoe deformity left 2nd toe. Previous ulcerations and infection requiring surgical treatment of both right and left feet. Patient with ulcer nonhealing from standard wound care measures. Difficulty with shoe wear. Presents for operative treatment. Findings right foot ulcer 3 x 3 cm involving skin, subcutaneous tissue and extending to the muscle layer. Description of Procedure Patient identified in the preoperative holding. Informed consent given. Operative extremity marked. Patient received intravenous antibiotics. Patient brought to the operating room where underwent general anesthetic by anesthesia team. Positioned supine on operating room table. Time-out performed confirming the patient, site of the surgery and the plan. left foot and ankle exsanguinated Esmarch wrap at the ankle and secured as a tourniquet.. Dorsal longitudinal incision made over the 2nd toe proximal interphalangeal joint with 15 blade knife. Hemostasis controlled electrocautery. Dorsal capsulotomy performed including the extensor tendon. Medial and lateral collateral ligaments released off of the proximal phalanx. Distal and of the proximal phalanx and the proximal end of the middle phalanx resected with bone cutter and rongeur. Any prominent bone or spurring removed with rongeur. Joint thoroughly irrigated with antibiotic solution. Joint then prepared, reduced and fixed with internal joint arthrodesis fixation device. Alignment checked with image intensification. Extension at the metatarsophalangeal joint. Dissection the metatarsophalangeal joint then performed with 15 blade knife. Previous excision of the metatarsal head. Scar tissue removed from the of the bone. Toe then reduced and pinned advanced from the PIP joint into the metatarsophalangeal area 2nd metatarsal. Alignment checked with image intensification noted to be good. Wound thoroughly irrigated. Capsule closed with 3 O Monocryl interrupted suture. Skin repaired with 4 O nylon interrupted suture. Skin tourniquet released and good capillary refill noted in toe. Sterile dressing applied. Right foot then addressed. Foot and Ankle exsanguinated and calf tourniquet inflated to 225 MmHg. 4Th toe addressed with dorsal longitudinal incision over the metatarsophalangeal joint with a 15 blade knife. Capsule incised dorsally in line with skin incision and collateral ligaments released medially and laterally. Deformity of the metatarsal neck and head noted. Horizontal osteotomy then performed with sagittal saw from the articular surface proximally. This allowed rotation and shortening of the distal metatarsal. This was then transfixed with a percutaneous pin, 1.1 mm. Pin was cut outside the toe in a protective cap applied. Image intensification confirmed reduction. Wound irrigated capsule closed with 3-0 Monocryl interrupted suture. Skin repaired with 4-0 nylon interrupted suture. Longitudinal incision made over the lateral aspect of the distal portion of the 5th metatarsal with a 15 blade knife. Hemostasis controlled electrocautery. Soft tissue elevated off the end of the metatarsal. Exostosis present and removed with an osteotome and smoothed
[2022-10-03] MEDS: fentaNYL CITRATE INJ (*CRX) 100 MCG/2 ML VIAL 25 MCG IV PUSH ×2 (15:23→15:31)
--- NOTE | 2022-10-03 16:13 | SUR.PHASEII ---
PATIENT SOMEWHAT UNSTEADY ON HIS FEET WHEN HE TOOK A FEW STEPS. OPTED TO USE WHEELCHAIR TO BATHROOM.
[2022-10-03] MEDS: oxyCODONE HCL (*CRX) 5 MG TAB IR PO (16:20)
--- NOTE | 2022-10-03 18:10 | SUR.PHASEII ---
1700 OOZING NOTED TO RIGHT HEEL AND POSTERIOR-LATERAL ASPECT THROUGH DRESSING. DR. HARRIS'S CELL CALLED WITH NO ANSWER; EXCHANGE CALLED; DR. HARRIS CALLED BACK IMMEDIATELY WHO INSTRUCTED TO REMOVE SOILED DRESSING AND REAPPLY NEW ONE. FLUFFS AND WIDE COBAN APPLIED. 1730 OOZING NOTED TO LEFT HEEL. DRESSING REMOVED AND REAPPLIED WELL WITH WIDE COBAN.
--- NOTE | 2022-10-03 18:19 | SUR.PHASEII ---
1800 PATIENT NOW WALKING MUCH BETTER; MOM WILL BRING WALKER TO CAR FOR HIM TO USE TO GET INSIDE HOUSE.
== END 2022-10-03 18:05 | disposition home or self-care (01) ==
PROVIDERS: PCP Family Medicine; Visit Provider Orthopaedic Surgery
PROC: (CPT 28285; principal; 2022-10-03 12:00)
PROC: (CPT 28285; 2022-10-03 12:00)
DX: M20.42 Other hammer toe(s) (acquired), left foot (principal); M20.41 Other hammer toe(s) (acquired), right foot; M20.5X1 Other deformities of toe(s) (acquired), right foot; E11.621 Type 2 diabetes mellitus with foot ulcer; L97.512 Non-pressure chronic ulcer of other part of right foot with fat layer exposed; E11.610 Type 2 diabetes mellitus with diabetic neuropathic arthropathy; I48.91 Unspecified atrial fibrillation; I25.2 Old myocardial infarction; K70.30 Alcoholic cirrhosis of liver without ascites; I11.0 Hypertensive heart disease with heart failure; I50.9 Heart failure, unspecified; K73.9 Chronic hepatitis, unspecified; E11.40 Type 2 diabetes mellitus with diabetic neuropathy, unspecified; E78.5 Hyperlipidemia, unspecified; I25.5 Ischemic cardiomyopathy; Z79.01 Long term (current) use of anticoagulants; Z87.891 Personal history of nicotine dependence
CPT/HCPCS: 28285; 28308; 11043; 15275; 28104; 36415; 76705; 80048; 85610; 85730; 99199; A9270; C9363; J0690; J1100; J1170; J1885; J2250; J2370; J2405; J2704; J3010; J7120; L2116; Q4118; Q4137

== ENCOUNTER 2023-04-10 08:39 | Outpatient (CLI) | payer OTHER, SELFPAY ==
--- NOTE | ~2023-04-10 | US_ITS ---
US right upper quadrant INDICATION: Cirrhosis PROCEDURE: Realtime right upper abdominal ultrasound. COMPARISON: No prior studies for comparison. FINDINGS: The pancreas is normal without focal mass or pancreatic ductal dilation. There is cirrhosi s of the liver. Liver echotexture is heterogeneous. No discrete hepatic mass. There is normal direct ional flow in the portal vein. There is gallbladder wall thickening. No gallstones or pericholecystic fluid. Common bile duct measu res 3.5 mm. No sonographic Walker's sign. IMPRESSION: 1: Cirrhosis of the liver. 2: Gallbladder wall thickening. This could indicate interstitial edema, chronic liver disease or chr onic cholecystitis. Reviewed, dictated and finalized at location L. WOUND IMPRESSION: 1: Cirrhosis of the liver. 2: Gallbladder wall thickening. This could indicate interstitial edema, chroni c liver disease or chronic cholecystitis.
[2023-04-10 08:56] LABS: Hematocrit 39.8 % (40.0-54.0); Hemoglobin 12.8 g/dL (14.0-18.0); Immature Platelet Fraction Pct 3.3 % (1.0-7.0); Mean Corpuscular HGB Conc 32.2 g/dL (32.0-36.0); Mean Corpuscular Hemoglobin 30.8 pg (27.0-31.0); Mean Corpuscular Volume 95.9 fL (78.0-102.0); Mean Platelet Volume 10.7 fl (8.7-11.0); Platelet Count Result 116 K/mm3 (150-420); Red Blood Count 4.15 M/mm3 (4.70-6.10); White Blood Count 4.5 K/mm3 (4.8-10.8)
[2023-04-10 09:42] LABS: INR 1.1; Prothrombin Time 12.3 Seconds (9.50-12.10)
[2023-04-10 09:45] LABS: Alanine Aminotransferase 38 U/L (16-63); Albumin Level 3.7 g/dL (3.4-5.0); Alkaline Phosphatase 165 U/L (46-116); Anion Gap 4 mmol/L (8-16); Aspartate Amino Transferase 26 U/L (15-37); Bilirubin,Total 0.9 mg/dL (0.00-1.00); Blood Urea Nitrogen 15 mg/dL (7-18); Calcium 8.9 mg/dL (8.5-10.1); Carbon Dioxide 31 mmol/L (21-32); Chloride 102 mmol/L (98-108); Estimated Glomerular Filt Rate > 60; Glucose 96 mg/dL (70-99); Osmolality Calculated 284 mOsm/kg (285-295); Potassium 4.5 mmol/L (3.5-5.1); Sodium 137 mmol/L (136-145); Total Protein 6.9 g/dL (6.4-8.2)
[2023-04-13 10:45] LABS: Hepatitis B Surface Antibody Nonreactive (Nonreactive); Hepatitis B Surface Antigen Nonreactive (Nonreactive)
[2023-04-15 07:22] LABS: Hepatitis B DNA PCR Not Detected
== END 2023-04-10 08:40 | disposition home or self-care (01) ==
PROVIDERS: PCP Family Medicine; Visit Provider Internal Medicine Gastroenterology
DX: K74.60 Unspecified cirrhosis of liver (principal); R93.89 Abnormal findings on diagnostic imaging of other specified body structures
CPT/HCPCS: 36415; 76705; 80053; 85027; 85055; 85610; 86706; 87340; 87517

== ENCOUNTER 2024-02-04 14:09 | Outpatient (CLI) | payer OTHER, SELFPAY ==
--- NOTE | ~2024-02-04 | MR_ITS ---
EXAMINATION: MR foot RT wo/w con DATE: 02/04/2024 15:30 INDICATION: Neuropathic ulceration at the right foot TECHNIQUE: Magnetic resonance imaging (MRI) of the right fore/mid foot was performed without and with 14 mL Multihance intravenous contrast. Sequences included axial, sagittal and coronal T1-weighted FS E, axial T2-weighted FS FSE, axial T1-weighted FS FSE, sagittal fluid sensitive FSE STIR, coronal PD- weighted FS FSE and postcontrast axial, sagittal and coronal T1-weighted FS FSE. COMPARISON: Radiographs dated 10/23/2022 FINDINGS: Again seen is amputation of the distal aspect of the fifth metatarsal. There is prominent marrow ady a and enhancement and loss of T1 marrow fat signal throughout the remaining proximal aspect of the fi fth metatarsal consistent with osteomyelitis. There is intra-articular fracture extending across the base of the fifth metatarsal. There is additional prominent marrow edema with enhancement and some lo ss of T1 fat signal at the base of the adjacent fourth metatarsal also consistent with osteomyelitis. There is increased increased fluid signal and enhancement along the lateral margin of the adjacent c uboid but without definitive cortical erosion or loss of T1 marrow fat signal in this remains equivoc al for reactive edema versus early osteomyelitis. No evident abscess. 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 There is a The previously seen percutan eous pin fixation extending from the tuft of the fourth distal phalanx through the proximal middle ph alanges and into the head of the fourth metatarsal has been removed. There appears to be linear low s ignal intensity along the distal diaphysis of the fourth metatarsal which appears to represent a kristin ined fragment of the previously fractured percutaneous fixation pin. Increased fluid signal and enhancement associated with osteonecrosis with collapse of the articular c ortex at the head of the second metatarsal which is new since the prior study. Polyarticular osteoart hritis, moderate to severe with subarticular edema-like and cystlike changes at the second and third tarsal metatarsal joints. Moderate osteoarthritis with additional small region of subarticular edema- like signal change at the naviculocuneiform and first tarsal metatarsal joints. IMPRESSION: 1. Osteomyelitis at the remaining proximal portion of the fifth metatarsal (the distal portion of whi ch has been previously resected) as well as at the adjacent base of the fifth metatarsal and potentia lly also at the adjacent cuboid. 2. Intra-articular fracture at the base of the remaining fifth metatarsal. 3. Osteonecrosis of the head of the second metatarsal with collapse of the distal articular surface w hich is new since the prior study. 4. 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 Reviewed, dictated and finalized at location A. IMPRESSION: 1. Osteomyelitis at the remaining proximal portion of the fifth metatarsal (the distal portion of which has been previously resected) as well as at the adjace nt base of the fifth metatarsal and potentially also at the adjacent cuboid. 2. Intra-articular fracture at the base of the remaining fifth metatarsal. 3. Osteonecrosis of the head of the second metatarsal with collapse of the dist al articular surface which is new since the prior study. 4. 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
== END 2024-02-04 14:10 | disposition home or self-care (01) ==
PROVIDERS: PCP Podiatrist Foot & Ankle Surgery; Visit Provider Podiatrist Foot & Ankle Surgery
DX: L97.513 Non-pressure chronic ulcer of other part of right foot with necrosis of muscle (principal); M19.071 Primary osteoarthritis, right ankle and foot
CPT/HCPCS: 73720; A9577

== ENCOUNTER 2024-03-31 07:32 | Outpatient (CLI) | payer OTHER, SELFPAY ==
--- NOTE | ~2024-03-31 | US_ITS ---
Limited Abdominal Sonogram: Real-time sonographic imaging of the right upper quadrant was performed. Clinical History: Cirrhosis Findings: The liver appears heterogeneous with no evidence of mass lesion or bile duct dilatation. S omewhat nodular contour of liver present. Main portal vein demonstrates normal direction of flow. The gallbladder is well distended, with no evidence of gallstone. Gallbladder wall is focally thickened up to 8 mm. The common bile duct measures 3 mm. The visualized pancreas, aorta, and IVC are unremark able. Impression: Cirrhotic appearance of the liver. Gallbladder wall thickening without evidence of gallstone. This is nonspecific, possibly reactive. Co rrelate clinically. Reviewed, dictated and finalized at location . [employer] Impression: Cirrhotic appearance of the liver. Gallbladder wall thickening without evidence of gallstone. This is nonspecific, possibly reactive. Correlate clinically.
[2024-03-31 07:52] LABS: Hematocrit 38.9 % (40.0-54.0); Hemoglobin 12.9 g/dL (14.0-18.0); Immature Platelet Fraction Pct 2.9 % (1.0-7.0); Mean Corpuscular HGB Conc 33.2 g/dL (32-36); Mean Corpuscular Hemoglobin 29.4 pg (27.0-31.0); Mean Corpuscular Volume 88.6 fL (78.0-102.0); Mean Platelet Volume 10.2 fl (8.7-11.0); Platelet Count Result 92 K/mm3 (150-420); Red Blood Count 4.39 M/mm3 (4.70-6.10); Red Cell Distribution Width 14.6 % (11.6-14.4); White Blood Count 4.6 K/mm3 (4.8-10.8)
[2024-03-31 08:03] LABS: INR 1.2; Prothrombin Time 12.8 Seconds (9.50-12.1)
[2024-03-31 09:03] LABS: Alanine Aminotransferase 44 U/L (16-63); Albumin Level 3.7 g/dL (3.4-5.0); Alkaline Phosphatase 133 U/L (46-116); Anion Gap 7 mmol/L (4-12); Aspartate Amino Transferase 29 U/L (15-37); Bilirubin,Total 1.3 mg/dL (0.00-1.00); Blood Urea Nitrogen 14 mg/dL (7-18); Calcium 8.9 mg/dL (8.5-10.1); Carbon Dioxide 30 mmol/L (21-32); Chloride 104 mmol/L (98-108); Estimated Glomerular Filt Rate > 60; Glucose 93 mg/dL (70-99); Osmolality Calculated 292 mOsm/kg (285-295); Potassium 4.2 mmol/L (3.5-5.1); Sodium 141 mmol/L (136-145); Total Protein 6.9 g/dL (6.4-8.2)
[2024-04-01 07:14] LABS: Hepatitis B Core Ab Total NON-REACTIVE (NON-REACTIVE)
[2024-04-01 10:32] LABS: Hepatitis B Surface Antibody NON-REACTIVE (NON-REACTIVE); Hepatitis B Surface Antigen NON-REACTIVE (NON-REACTIVE)
[2024-04-02 14:58] LABS: Hepatitis B DNA PCR NOT DETECTED (NOT DETECTED); Hepatitis B DNA PCR NOT DETECTED Log IU/mL (NOT DETECTED)
== END 2024-03-31 07:33 | disposition home or self-care (01) ==
PROVIDERS: PCP Family Medicine; Visit Provider Internal Medicine Gastroenterology
DX: K74.60 Unspecified cirrhosis of liver (principal); B19.10 Unspecified viral hepatitis B without hepatic coma; D69.6 Thrombocytopenia, unspecified
CPT/HCPCS: 36415; 76705; 80053; 85027; 85055; 85610; 86704; 86706; 87340; 87517